=== PATIENT | female | born 1945 | race African-American/Black ===

== ENCOUNTER → 2016-07-29 | Outpatient (CLI) | payer OTHER ==
[~2016-07-29] VITALS: Ht 152.4 cm; Wt 54.2 kg
[~2016-07-29] MED LIST: AMLODIPINE BESYL5 MG PO; ASPIRIN EC81 M1 PO; B12 5,000 MCG1 EACH; B12INJ INJECTION; CYCLOBENZAPRINE10 MG PO; DESYREL50 MG PO; DETROL LA4 MG PO; FLEXERIL PO; HYDROCODON-ACE1 EAC5 PO; LIORESAL 10 MG10 MG PO; LOVASTATIN 20 M20 MG PO; LYRICA 50 MG50 MG PO; LYRICA 75 MG CA75 MG PO; MELOXICAM7.5 MG PO; MOBIC15 MG PO; NAPROSYN500 MG PO; NORCO 5-325 TA1 EACH PO; NORTRIPTYLINE H25 M3 PO; TECFIDERA240 MG PO; TRAMADOL 50 MG50 MG PO; VESICARE10 M1 PO; VITAMIN B-12500 MCG PO; VITAMIN D2000 UNIT PO; XYZAL5 MG PO; ZOCOR 20 MG TAB20 M1 PO
--- NOTE | ~2016-07-29 | HPC ---
[facility] [place] [address] PAIN MANAGEMENT CONSULTATION Name: PRISCA SOLIS Room #: REG [facility].#: [id number] Admission: 07/29/16 Attend Phys: Orlando Crews DO Discharge: Date of : 43 Report #: [id number] THIS REPORT FOR: //name// CC: Orlando Valles MD DATE OF SERVICE: 07/29/2016 REFERRING PHYSICIAN: Yakelin Valles MD. CHIEF COMPLAINT: Left neck pain, left upper extremity pain with paresthesias, low back pain, and right lower extremity pain with paresthesias. HISTORY OF PRESENT ILLNESS: As you know, the patient is a very pleasant 71-year-old female returning in followup visit with ongoing neck pain and left upper extremity pain for which she places pain score of 10/10. She also complains of low back pain and right lower extremity pain for which she provides pain level of 7/10. She states her pain is aching, sore, sharp, stabbing, constant, radiating, and tingling in sensation, exacerbated with any type of activity and improves with rest and relaxation. She indicates the pain begins in her left neck, radiates in to the left hand, typical distribution for her cervical radiculopathy. She is now experiencing, low back pain, right lower extremity pain with radiation of symptoms all the way to the top of her foot. As you are aware, the patient has undergone surgery to address left lower extremity radiculopathy. This appears to be a new onset of right lower extremity paresthesias. She returns today to discuss treatment options. ALLERGIES: SULFA, ERYTHROMYCIN, and PENICILLIN. CURRENT MEDICATIONS: Cyanocobalamin 500 mcg per day, hydrocodone/acetaminophen 10/325 for every 4 hours p.r.n. for pain, Ultram 50 mg twice a day, cholecalciferol 2000 units once a day, Tecfidera 240 mg twice a day, lovastatin 40 mg per day, aspirin 81 mg per day, amlodipine 5 mg per day. SOCIAL HISTORY: The patient denies IV or illicit drug use. Denies any chronic alcohol abuse. She remains smoker, approximately half pack a day. She is retired, unaccompanied today. IMAGING: No new imaging available. PHYSICAL EXAMINATION: VITAL SIGNS: Blood pressure 118/62, pulse 99, respiratory rate 14 unlabored. The patient is 98% on room air. Height 5 feet tall, weight 119.6 pounds, BMI calculated at 23.4. GENERAL: Well developed, well nourished, and well hydrated. [place] 71[place] [address] PAIN MANAGEMENT CONSULTATION Name: PRISCA SOLIS [id number] Admission: 07/29/16 Attend Phys: Orlando Crews DO Discharge: Date of : 43 Report #: [id number] female appears stated age. Placing current pain score at 10/10 in neck and left shoulder, 7/10 in low back and right lower extremity. HEENT: Normocephalic and atraumatic. Pupils are equal, round, and reactive to light. Extraocular muscles are intact. Sclerae are nonicteric without injection. EXTREMITIES: Showed no clubbing, no cyanosis, and no edema. MUSCULOSKELETAL: Upper extremity strength is weakened on the left, when compared to the right. Pain is elicited with biceps flexion and triceps extension, as well as shoulder abduction. Spurling's test is positive left and negative right. There is palpatory tenderness over the paraspinal musculature of the cervical spine. Seated straight leg raising is negative on the right. Supine straight leg raising is positive right. Adam's test is negative. Gait extremely antalgic favoring the right lower extremity over left. ASSESSMENT: 1. Chronic neck pain. 2. Cervical radiculopathy. 3. Cervical spondylosis with radiculopathy. 4. Lumbar radiculopathy. 5. Lumbar degeneration. 6. Multiple sclerosis. 7. Chronic intractable pain. PLAN: 1. The patient returns today in followup visit, displaying 2 different radiculopathies. The initial is the cervical radiculopathy on the left, radiating in to left upper extremity. This is unchanged from previous evaluations. She has undergone cervical epidural injections with improvement in symptoms, but unfortunately, her symptom improvement began to wane with recent injections. We have discussed again with the patient the option of treatments which include, physical therapy, stretching exercises, medication management, with addition of neuropathic pain medication. We discussed cervical epidural injections and surgical options. After reviewing risks and benefits of all proposed treatment options, the patient chose to undergo MRI to further evaluate the cervical region and initiate medications. In regard to the patient's low back pain, I am concerned of changes in the lumbar region, distribution of symptoms would indicate the L4-S1 level most likely, given the numbness and tingling radiating all the way in to the foot, making her foot "fall asleep". I am concerned that there has been changes in the lower lumbar region. That may be needed to be addressed with surgical options. We will continue to work this issue up, but we will start the patient on medications and undergo MRI of the cervical spine initially. 2. The patient was sent for an MRI of cervical spine without contrast. This will be obtained as quickly as possible. The patient then will return with MRI, and we will discuss the findings and the proposed treatment options for cervical [facility] [address] [place] [address] PAIN MANAGEMENT CONSULTATION Name: PRISCA SOLIS Room #: REG [facility] Kang.#: [id number] Admission: 07/29/16 Attend Phys: Orlando Crews DO Discharge: Date of : 43 Report #: [id number] radiculopathy involving the left upper extremity. The patient will undergo this imaging study on Wednesday. We will review the findings and discuss this at followup visit on next Wednesday. 3. The patient was provided a prescription of hydrocodone 10/325 one tab every 6 hours p.r.n. for pain. I have given the patient #120 to take as needed for pain control, and I advised to watch for side effects. 4. The patient will reinitiate the Gralise therapy 600 mg dose with titration pack to escalate all the way up to 1800 mg as needed. This will be added for the neuropathic pain control for both the cervical radiculopathy and lumbar radiculopathy. She was given a sample pack of this to initiate the medication pack at 600 mg and escalate as directed. 5. The patient was provided a prescription of cyclobenzaprine 10 mg dose 1 tab p.o. t.i.d. for muscle spasm. I have given #90 tablets. No refills. 6. The patient will start Meloxicam 7.5 mg one tab p.o. b.i.d. This will added for antiinflammatory effects. She will initiate this medication today. 7. The patient returns to our clinic in approximately 6 days. We will review the findings on the MRI and discuss treatment options for cervical radiculopathy, and discuss efficacy of medications provided today. <ELECTRONICALLY SIGNED> By: Orlando Crews DO 08/04/16 1243 [id number] Orlando Crews DO /nt
[2016-07-29 08:33] VITALS: BP 118/62
== END ==
LOC: PAIN 07:05
DX: M47.22 Other spondylosis with radiculopathy, cervical region (principal); M51.16 Intervertebral disc disorders with radiculopathy, lumbar region; G89.4 Chronic pain syndrome; G35 Multiple sclerosis

== ENCOUNTER → 2016-07-31 | Outpatient (CLI) | payer OTHER | LOC: MRI 08:20 | DX: M54.12 Radiculopathy, cervical region (principal); M54.2 Cervicalgia ==

== ENCOUNTER → 2016-08-04 | Outpatient (CLI) | payer OTHER ==
[~2016-08-04] VITALS: Ht 152.4 cm; Wt 55.2 kg
--- NOTE | ~2016-08-04 | HPC ---
[facility] [place] [address] PAIN MANAGEMENT CONSULTATION Name: PRISCA SOLIS Room #: REG [facility].#: [id number] Admission: 08/04/16 Attend Phys: Orlando Crews DO Discharge: Date of : 43 Report #: [id number] THIS REPORT FOR: //name// CC: Orlando Valles MD DATE OF SERVICE: 08/04/2016 REFERRING PHYSICIAN: Yakelin Valles M.D. CHIEF COMPLAINT: Neck pain, left upper extremity pain. HISTORY OF PRESENT ILLNESS: As you know, the patient is a 71-year-old female who has returned today in followup visit to review MRI cervical spine that was obtained on 07/31/2016 for her neck pain, left upper extremity pain. The patient returns today reporting pain has improved. She is now placing pain score 4/10. She states her pain is exacerbated with quick movements of her neck, improves with rest, relaxation and medications. She returns to review MRI of cervical spine and discuss options for treatment. ALLERGIES: SULFA, ERYTHROMYCIN and PENICILLIN. CURRENT MEDICATIONS: Cyanocobalamin, meloxicam, cyclobenzaprine, hydrocodone, pregabalin, Tecfidera, lovastatin, aspirin, and amlodipine. SOCIAL HISTORY: The patient denies IV or illicit drug use, denies any chronic alcohol use. She is a smoker, half pack of tobacco per day, unaccompanied at today's visit. IMAGING: MRI cervical spine obtained on 07/31/2016 shows persistent abnormal cord signal intensity within the cervical and upper thoracic area, most prominent at C2-C3 level, there is diffuse atrophy of the cord at the T1-T2 level. Overall appearance is not significantly changed from previous imaging. PHYSICAL EXAMINATION: VITAL SIGNS: Blood pressure 133/67, pulse is 90, respiratory rate 16, unlabored, the patient 98% on room air. Height 5 feet tall, weight 121.8 pounds, BMI calculated 23.8. GENERAL: Well-developed, well-nourished, well-hydrated 71-year-old female appearing stated age, pain today is rated at 4/10. HEENT: Normocephalic, atraumatic. Pupils are equal, round and reactive to light. Extraocular muscles are intact. Sclerae are nonicteric, without injection. Speech is fluent. EXTREMITIES: Show no clubbing, no cyanosis, no edema. MUSCULOSKELETAL: Upper extremity strength is weakened on the left when compared [facility] [address] [place] [address] PAIN MANAGEMENT CONSULTATION Name: PRISCA SOLIS [facility] [id number] Admission: 08/04/16 Attend Phys: Orlando Crews DO Discharge: Date of : 43 Report #: [id number] to the right. There is some giveaway strength noted with biceps flexion and triceps extension as well as shoulder abduction on the left as well as a negative right. Spurling's test is positive on left. ASSESSMENT: 1. Chronic neck pain. 2. Cervical radicular symptoms. 3. Cervical spondylosis with radicular symptoms. 4. Chronic lumbar radiculopathy. 5. Multiple sclerosis. 6. Chronic intractable pain. PLAN: 1. The patient has returned today in followup visit where we have reviewed her MRI of the cervical region. I have discussed with the patient the findings. I am concerned the patient may have active MS lesions in the cervical region. She does have fairly significant changes in the cervical spine with atrophy of the cord noted at the T1-T2 level. There is a mild central canal stenosis in the upper cervical region. I am concerned that the symptoms the patient was experiencing of late involving the left upper extremity may be due to her multiple sclerosis and the changes in the cervical spinal cord as well as the changes at the upper thoracic area. The patient does have an appointment with her neurologist coming up in a couple of months. They apparently are going to be doing a full scan to determine whether or not she has had changes and increasing lesions or stabilization of her MS. I have taken the liberty of contacting the patient's neurologist today, we discussed the findings on the cervical spine and the patient is to follow up with neurology more quickly. She is to call in the very near future to obtain a followup visit with her neurology team, so that they can discuss options of treatment and whether or not changes need to be made in her medication management for her MS. 2. The patient's pain has begun to improve, which would indicate the likelihood that the symptoms she was experiencing are not necessarily cervical radicular, but are her MS mimicking cervical radicular symptoms. We have made suggestion of changing the medication therapy today in hopes of improving pain. 3. The patient was given Lyrica 75 mg dose. She is to begin for 14 days at this dose, then increase to 100 mg p.o. at bedtime. We are going to be using a slow titration of this medication, so she does not experience the side effects of somnolence, decrease in mental acuity, disorientation and confusion. She was given samples of medication to begin the titration, when she reaches an efficacious level should contact the clinic and will medications available to her pharmacy. 4. The patient will follow up with neurology as quickly as possible so that they [address] [address] PAIN MANAGEMENT CONSULTATION Name: PRISCA SOLIS Room #: REG [facility].R.#: [id number] Admission: 08/04/16 Attend Phys: Orlando Crews DO Discharge: Date of : 43 Report #: [id number] can discuss options of treatment for the suspected exacerbation of MS. Further evaluation, I believe is warranted. <ELECTRONICALLY SIGNED> By: Orlando Crews DO 08/17/16 0805 [id number] 2313 Orlando Crews DO /nt
[2016-08-04 09:17] VITALS: BP 133/67
== END | disposition home or self-care (01) ==
LOC: PAIN 07:08
DX: M47.22 Other spondylosis with radiculopathy, cervical region (principal); G35 Multiple sclerosis; G89.29 Other chronic pain; F17.200 Nicotine dependence, unspecified, uncomplicated

== ENCOUNTER → 2016-10-14 | Outpatient (CLI) | payer OTHER ==
[~2016-10-14] VITALS: Ht 152.4 cm; Wt 56.7 kg
--- NOTE | ~2016-10-14 | HPC ---
[address] [address] PAIN MANAGEMENT CONSULTATION Name: PRISCA SOLIS Room #: REG CL M[facility].#: [id number] Admission: 10/14/16 Attend Phys: Orlando Crews DO Discharge: Date of : 43 Report #: [id number] THIS REPORT FOR: //name// CC: Orlando Valles DATE OF SERVICE: 10/14/2016 CHIEF COMPLAINT: Left neck pain, left upper extremity pain with paresthesias, right lower extremity pain with foot drop. HISTORY OF PRESENT ILLNESS: As you know, the patient is a very pleasant 71-year-old female who returns today in followup visit reporting increasing neck pain, left upper extremity pain with paresthesias. The patient has been diagnosed with cervical radiculopathy and has done very well with cervical epidural injections in the past. She returns requesting this to be performed today. She continues to experience right lower extremity pain that does not correlate to the patient's MRI findings, there is concern that the patient's right foot drop may be due to her MS. She is being evaluated by a neurologist and I have recommended the patient return to see the neurologist about the increasing pain levels in the right lower extremity, again not correlating to MRI findings, which show only left-sided pathology from imaging studies of 2016. The patient is denying any injury or trauma to the lower back, right lower extremity that would lead to symptoms development from acute pathology. She has returned requesting a cervical epidural injection to determine how much of her symptoms in the upper neck and left side are related to cervical radiculopathy versus the possibility of MS sources given the changes in the cervical spine from MRI showing fairly stable plaques, but changes all the same. ALLERGIES: SULFA, ERYTHROMYCIN, PENICILLIN. CURRENT MEDICATIONS: Lyrica, nortriptyline, hydrocodone, Meloxicam, cyclobenzaprine, cyanocobalamin, Tecfidera, lovastatin, aspirin, and amlodipine. SOCIAL HISTORY: The patient denies IV or illicit drug use. Denies any chronic alcohol use. She continues to smoke 1 pack of tobacco a day. She is unaccompanied today. IMAGING: No new imaging available. PHYSICAL EXAMINATION: VITAL SIGNS: Blood pressure 127/71, pulse 90, respiratory rate 14 and unlabored. The patient 98% on room air. Height 5 feet tall, weight 125 pounds, BMI calculated 24.4. GENERAL: Well-developed, well-nourished, well-hydrated, thin 71-year-old female, appears in moderate distress secondary to pain, [place] [address] PAIN MANAGEMENT CONSULTATION Name: PRISCA SOLIS [facility] [id number] Admission: 10/14/16 Attend Phys: Orlando Crews DO Discharge: Date of : 43 Report #: [id number] score at around 7-8/10. HEENT: Normocephalic, atraumatic. Pupils equal, round, reactive to light. Extraocular muscles are intact. Speech is fluent. EXTREMITIES: Show no clubbing, no cyanosis, no edema. MUSCULOSKELETAL: Upper extremity strength is weakened on the left when compared to the right. Giveaway strength noted with biceps flexion as well as shoulder abduction. Spurling's test is positive for left, negative right. There is normal muscle bulk and tone in the upper extremities comparatively. The patient does have some weakness in the right lower extremity noted mainly with dorsiflexion of the right foot as well as knee extension. ASSESSMENT: 1. Chronic neck pain. 2. Cervical radiculopathy. 3. Cervical spondylosis with radiculopathy. 4. Chronic low back pain. 5. Multiple sclerosis. 6. Chronic intractable pain. PLAN: 1. The patient returns today in followup visit with what appears to be recurrent cervical radicular symptoms. The symptoms the patient is experiencing are on the left neck radiating down the left arm. Does not appear to be a shoulder pathology as the patient is able to move the shoulder with no change in pain and is able to hold the shoulder stable without change in pain, which would indicate a nonjoint related type of pain generator. The symptoms began in the cervical spine, radiate across the back of the shoulder into the arm and down below the elbow. This would correlate with cervical radicular symptoms, though I cannot fully rule out the multiple sclerosis underlying issues noted in the cord as these could also be a source of her symptoms. We would recommend the patient undergo cervical epidural injection to determine how much of her symptoms are related to cervical radiculopathy versus how much might be related to other pathology. The patient was advised the risks and benefits of a cervical epidural injection, states she understood and wished to proceed. 2. The patient and I did discuss our concerns about the right lower extremity weakness. Her weakness does not correlate to a lumbar radiculopathy. Findings on MRI from 01/07/2016, shows no right-sided pathology, there is no lateralization of condition on the right, only left-sided. The patient is experiencing no left-sided discomfort at this point. The weakness on the right side could be related to her multiple sclerosis and I do feel workup may be necessary as there might be a possibility. The patient needs to change her medication therapy for her underlying disease processes. We will defer to neurology for examination of this area, though I do feel once again this is not a lumbar radicular issue as the patient's MRI shows no lateralizing feature to the right. 3. No medication changes were made at today's visit. The patient to continue [facility] [address] [place] [address] PAIN MANAGEMENT CONSULTATION Name: PRISCA SOLIS Room #: REG [facility]..#: [id number] Admission: 10/14/16 Attend Phys: Orlando Crews DO Discharge: Date of : 43 Report #: [id number] current medical therapy as previously prescribed. PROCEDURE NOTE DESCRIPTION OF PROCEDURE: C7-T1 cervical epidural steroid injection under fluoroscopic guidance. After obtaining written consent, the patient was taken back to fluoroscopy suite, placed in a prone position with separate pillows under chest and forehead to decrease cervical lordosis. Skin overlying cervical area are prepped and draped in aseptic fashion. C7-T1 cervical interspace identified by AP fluoroscopy. Skin and subcutaneous tissue overlying the target site of injection was anesthetized with 3 mL of 1% lidocaine. A 20-gauge 3-1/2 inch Tuohy needle advanced under fluoroscopic guidance towards the epidural space using a paramedian approach. Epidural space identified using loss of resistance to air technique. After negative aspiration for heme or cerebrospinal fluid, 1 mL of Omnipaque was injected. A cervical epidurogram confirmed using both AP and oblique fluoroscopy. After negative aspiration for heme or cerebrospinal fluid, 5 mL of a solution containing 2 mL 40 mg per mL, 80 mg total triamcinolone, 3 mL lidocaine 1% was injected slowly. Needle retracted fci, needle tract flushed 3 mL 1% lidocaine. Needle then removed. Sterile bandage placed over injection site. No new motor deficits present in the upper extremity following the procedure. The patient tolerated procedure well, carefully escorted to the recovery in stable condition. No apparent complications. After meeting discharge criteria, the patient discharged home. By: [id number] Orlando Crews DO /nt
[2016-10-14 08:22] VITALS: BP 127/71
== END ==
LOC: PAIN 08:05
DX: M47.22 Other spondylosis with radiculopathy, cervical region (principal); G89.29 Other chronic pain; F17.210 Nicotine dependence, cigarettes, uncomplicated; I10 Essential (primary) hypertension

== ENCOUNTER → 2016-11-03 | Outpatient (CLI) | payer OTHER ==
[~2016-11-03] VITALS: Ht 152.4 cm; Wt 56.5 kg
[~2016-11-03] MED LIST changes: +ALEVE220 MG PO
--- NOTE | ~2016-11-03 | HPC ---
[facility] [place] [address] PAIN MANAGEMENT CONSULTATION Name: PRISCA SOLIS Room #: REG [facility] MJim.#: [id number] Admission: 11/03/16 Attend Phys: Orlando Crews DO Discharge: Date of : 43 Report #: [id number] THIS REPORT FOR: //name// CC: Orlando Valles MD DATE OF SERVICE: 11/03/2016 CHIEF COMPLAINT: Left neck pain, left upper extremity pain and paresthesias, right lower extremity pain and foot drop. HISTORY OF PRESENT ILLNESS: As you know, the patient is a 71-year-old female who suffers from multiple sclerosis with variable pain levels, most recent pain was in the left neck, left upper extremity, though we found no specific pathology in the cervical spine responsible. She underwent a couple of epidural injections, which did ultimately improve symptoms, though her symptom improvement did not correlate with the timing on the injections themselves. Not confident during our conversation today that the epidurals did provide as much analgesic benefit as the patient believes. The timing for the improvement was well beyond the injection date. We discussed with the patient the possibility that her experience of pain may be related to other sources including the possibility of exacerbation of MS symptoms despite the fact the patient is showing no changes in her MS plaques. She returns today with pain level 6/10, but now is experiencing more left-sided weakness in general. ALLERGIES: SULFA, ERYTHROMYCIN, AND PENICILLIN. CURRENT MEDICATIONS: Lyrica, nortriptyline, hydrocodone, Meloxicam, cyclobenzaprine, , Tecfidera, lovastatin, aspirin, and amlodipine. SOCIAL HISTORY: The patient smokes one-pack tobacco per day despite our discussions to discontinue its use. Denies IV or illicit drug use. Denies any chronic alcohol use. She is unaccompanied today. IMAGING: New imaging available to be reviewed today. Thoracic MRI shows hyperintensities within the thoracic cord similar to 2015 study, provide a history of demyelination. MRI of the lumbar spine shows mild degenerative disk disease, facet arthropathy throughout the lumbar region. Partial laminectomy defect at left L4-L5, enhancing granulation tissue both dorsal and ventral. MRI of brain shows intensities within the supratentorial white matter in the patsy similar to prior study. The findings are compatible with demyelination, brain parenchymal volume loss. MRI of the cervical spine shows multiple cord hyperintensity similar to 2015. No active demyelinating plaque identified. Mild degenerative changes, but no lateralizing features in the cervical region. [facility] [address] [place] [address] PAIN MANAGEMENT CONSULTATION Name: PRISCA SOLIS Room #: REG CLI [facility]#: [id number] Admission: 11/03/16 Attend Phys: Orlando Crews DO Discharge: Date of : 43 Report #: [id number] PHYSICAL EXAMINATION: VITAL SIGNS: Blood pressure 139/61, pulse 85 and respiratory rate 14, unlabored. The patient is 100% on room air. Height 5 feet tall and weight 124.6 pounds. BMI calculated 24.3. GENERAL: Well-developed, well-nourished, well-hydrated, thin, 71-year-old female, appearing stated age, placing pain score today, no greater than 6/10. HEENT: Normocephalic, atraumatic. Pupils are equal, round, and reactive to light. Extraocular muscles are intact. EXTREMITIES: Showed no clubbing, no cyanosis, no edema. MUSCULOSKELETAL: Upper extremity strength on the left is weakened when compared to right. This is global in nature. Giveaway strength noted with biceps flexion as well as shoulder abduction. Spurling's test remains positive left, negative right. ASSESSMENT: 1. Chronic cervical radicular symptoms without a known source. 2. Cervical spondylosis with radicular symptoms, mild in nature. 3. Multiple sclerosis. 4. Chronic intractable pain. PLAN: 1. The patient returns today in followup visit where we have reviewed all the recent imaging studies, we appreciate the full extent of the imaging work that was done. I am pleased to indicate to the patient today, it does not appear to be increasing plaque development due to MS. Interestingly, I am unable to find a reason for the patient's left neck pain and left upper extremity pain. There is no lateralizing feature that would be indicative of findings necessary to develop a cervical radiculopathy. I am concerned that her multiple sclerosis symptomology may be the source of the patient's neck and the left upper extremity symptoms. Again, I am unable to find any specific finding in the cervical region that would contribute so significantly to the patient's symptoms. The disk osteophyte complexes and mild ligamentum flavum buckling only narrows the canal to 9 mm, which is not significant enough to cause the major affect, she is experiencing. She does have some moderate facet changes in the cervical region and leads to some moderate foraminal stenosis, but again this is not significant enough to cause the kind of pain the patient is experiencing. The fact that the patient also received benefit with epidural injections well beyond after the epidural injections faded. We would indicate that other sources of symptoms may be present. We would recommend at this time that we use conservative treatment. At this point, the patient does not need anything from our services except to review the imaging studies. I will be more than available to see the patient back in followup visit for medication management if she wishes to trial cervical injections. There are some changes within the cervical region that would warrant this though I am not confident that her injections are providing that much in the way of improvement in symptoms. We will discuss this at followup visit. [address] [address] PAIN MANAGEMENT CONSULTATION Name: PRISCA SOLIS Room #: REG [facility]#: [id number] Admission: 11/03/16 Attend Phys: Orlando Crews DO Discharge: Date of : 43 Report #: [id number] 2. I have asked the patient to follow up with her neurologist just to continue contact through their services. I do wish that the patient and her neurologist discuss our concerns about the lack of major pathology in the cervical spine, possibly an EMG would be helpful in this case to address the specific findings of electrode myelographic data that might help us treat her symptoms, though I have currently on neuropathic pain medications and I do not feel this would change much the treatment options. 3. We will see the patient back in followup visit on an as needed basis. By: [id number] Orlando Crews DO /nt
[2016-11-03 08:32] VITALS: BP 139/61
== END ==
LOC: PAIN 10-28 09:23
DX: M47.812 Spondylosis without myelopathy or radiculopathy, cervical region (principal); F17.210 Nicotine dependence, cigarettes, uncomplicated; I10 Essential (primary) hypertension

== ENCOUNTER → 2016-12-22 | Outpatient (CLI) | payer OTHER ==
[~2016-12-22] VITALS: Ht 152.4 cm; Wt 57.8 kg
--- NOTE | ~2016-12-22 | HPC ---
[facility] [address] [place] [address] PAIN MANAGEMENT CONSULTATION Name: PRISCA SOLIS Room #: REG [facility].#: [id number] Admission: 12/22/16 Attend Phys: Orlando Crews DO Discharge: Date of : 43 Report #: [id number] THIS REPORT FOR: //name// CC: Orlando Valles MD DATE OF SERVICE: 12/22/2016 CHIEF COMPLAINT: Left neck pain, left upper extremity pain with paresthesias. HISTORY OF PRESENT ILLNESS: As you know, the patient is a 71-year-old female who suffers from multiple sclerosis with variable pain levels, most recent pain left neck and left upper extremity, which has returned. She had done very well with epidural injections in the cervical region, reporting 60% to 70% improvement in overall pain lasting until just recently. She has had a slow return of symptoms without inciting injury or trauma. She returns to undergo the next in a series of cervical epidural injections in hopes of improving pain further. ALLERGIES: SULFA, ERYTHROMYCIN and PENICILLIN. CURRENT MEDICATIONS: Meloxicam, naproxen, pregabalin, nortriptyline, hydrocodone, cyclobenzaprine, cyanocobalamin, Tecfidera, lovastatin, aspirin, and amlodipine. SOCIAL HISTORY: The patient continues to smoke 1 pack tobacco per day, has done so for many years. Denies IV or illicit drug use. Denies any chronic alcohol use. IMAGING: No new imaging available. PHYSICAL EXAMINATION: VITAL SIGNS: Blood pressure 120/76, pulse 68, respiratory rate 14, unlabored. The patient 99% on room air. Height 5 feet tall, weight 127.4 pounds, BMI calculated 24.9. GENERAL: Well-nourished, well-hydrated, thin 71-year-old female appearing stated age, placing current pain score 8/10. HEENT: Normocephalic, atraumatic. Pupils equal, round, reactive to light. Speech remains fluent. EXTREMITIES: Show no clubbing, no cyanosis, no edema. MUSCULOSKELETAL: Upper extremity strength is weakened on the left when compared to the right. This appears to be global in nature, not dermatomal or myotomal in distribution. Giveaway strength is noted with biceps flexion on the left when compared to the right. Spurling's test positive left, negative right. [address] [address] PAIN MANAGEMENT CONSULTATION Name: PRISCA SOLIS Room #: REG [facility]#: [id number] Admission: 12/22/16 Attend Phys: Orlando Crews DO Discharge: Date of : 43 Report #: [id number] ASSESSMENT: 1. Chronic cervical radiculopathy. 2. Cervical spondylosis with radicular symptoms. 3. Multiple sclerosis. 4. Chronic intractable pain. PLAN: 1. The patient returns today in followup visit requesting to undergo cervical epidural injection under fluoroscopic guidance. The patient has done very well with previous cervical epidural injections. She is hopeful to see similar improvements today. She has been advised risks and benefits of this procedure. These risks include but are not necessarily limited to bleeding, bruising, infection, worsening pain, no relief of pain, also risk of temporary or permanent muscle weakness, temporary or permanent nerve damage, possible paralysis and . The patient states she understood and wished to proceed. 2. No medication changes were made at today's visit. The patient will continue current medical therapy as previously prescribed. 3. The patient will return to our clinic on an as needed basis for possible repeat cervical epidural injection. Otherwise, we will see her back in followup visit for medication management at her pre-established appointment. By: [id number] Orlando Crews DO /nt
--- NOTE | ~2016-12-22 | P ---
[facility] [place] [address] PROCEDURE REPORT Name: PRISCA SOLIS Room #: REG [facility].#: [id number] Admission: 12/22/16 Attend Phys: Orlando Crews DO Discharge: Date of : 43 Report #: [id number] THIS REPORT FOR: //name// CC: Orlando Valles MD DATE OF SERVICE: 12/22/2016 DESCRIPTION OF PROCEDURE: C7-T1 cervical epidural steroid injection under fluoroscopic guidance. After obtaining written consent, the patient was taken back to fluoroscopy suite, placed in prone position with separate pillows under chest and forehead to decrease cervical lordosis. Skin overlying cervical area prepped and draped in aseptic fashion. C7-T1 cervical interspace identified by AP fluoroscopy. Skin and subcutaneous tissue overlying target site of injection was anesthetized with 3 mL of 1% lidocaine. A 20-gauge 3-1/2-inch Tuohy needle advanced under fluoroscopic guidance towards the epidural space using midline approach. Epidural space identified using loss of resistance to air technique. After negative aspiration for heme or cerebrospinal fluid, 1 mL of Omnipaque was injected. A cervical epidurogram was confirmed using both AP and oblique fluoroscopy. After negative aspiration for heme or cerebrospinal fluid, 5 mL of a solution containing 2 mL 40 mg per mL, 80 mg total triamcinolone, 3 mL lidocaine 1% injected slowly. Needle retracted fci, needle tract flushed 3 mL 1% lidocaine. Needle then removed. Sterile bandage placed over injection site. No new motor deficits present in the upper extremity following the procedure. The patient tolerated procedure well, carefully escorted to the recovery room in stable condition. No apparent complications. After meeting discharge criteria, the patient discharged home. By: [id number] Orlando Crews DO /nt
[2016-12-22 08:19] VITALS: BP 120/76
== END | disposition home or self-care (01) ==
LOC: PAIN 06:49
DX: M47.22 Other spondylosis with radiculopathy, cervical region (principal); G35 Multiple sclerosis; G89.29 Other chronic pain; F17.210 Nicotine dependence, cigarettes, uncomplicated; Z88.8 Allergy status to other drugs, medicaments and biological substances; Z88.0 Allergy status to penicillin

== ENCOUNTER → 2017-03-17 | Outpatient (CLI) | payer OTHER ==
[~2017-03-17] VITALS: Ht 152.4 cm; Wt 60.3 kg
--- NOTE | ~2017-03-17 | HPC ---
[facility] [address] [place] [address] PAIN MANAGEMENT CONSULTATION Name: PRISCA SOLIS [facility] [id number] Admission: 03/17/17 Attend Phys: Orlando Crews DO Discharge: Date of : 43 Report #: [id number] THIS REPORT FOR: //name// CC: Orlando Logan MD DATE OF SERVICE: 03/17/2017 REFERRING PHYSICIAN: Adria Logan MD CHIEF COMPLAINT: Neck pain, left upper extremity pain with paresthesias, new onset right shoulder pain. HISTORY OF PRESENT ILLNESS: As you know, the patient is a very pleasant 72-year-old female who suffers from cervical radicular symptoms that mainly involved the neck and left upper extremity. She returns today with a pain level of 5/10. She is now indicating pain is aching, numbness, tender when describing the left upper extremity issues. She is also experiencing right shoulder pain that is "similar to her previous pain secondary to rotator cuff injury." The patient returns to discuss options for treatment. She denies new injury or trauma that may have led to progression of symptoms. She did receive 2 months' worth of improvement in symptoms with previous epidural injection, returning requesting a cervical epidural injection and to discuss the right shoulder pain that is new in presentation. ALLERGIES: SULFA, ERYTHROMYCIN, and PENICILLIN. CURRENT MEDICATIONS: Naproxen, pregabalin, nortriptyline, cyclobenzaprine, cyanocobalamin, cholecalciferol, Tecfidera, losartan, aspirin, and amlodipine. SOCIAL HISTORY: The patient continues to smoke 1 pack of tobacco per day, has done so for years. Denies IV or illicit drug use. Denies any chronic alcohol use. She is unaccompanied today. IMAGING: No new imaging available. PHYSICAL EXAMINATION: VITAL SIGNS: Blood pressure 131/65, pulse 85, respiratory rate 14 and unlabored, the patient is 98% on room air, height 5 feet tall, weight 133 pounds, and BMI calculated 26.0. GENERAL: Well-developed, well-nourished, well-hydrated 72-year-old female, she appears her stated age, she is in moderate distress secondary to pain, placing current pain score at 5/10. HEENT: Normocephalic, atraumatic. Pupils are equal, round, and reactive to light. Extraocular muscles are intact. Sclerae nonicteric without injection. [facility] [address] [place] [address] PAIN MANAGEMENT CONSULTATION Name: PRISCA SOLIS Room #: REG CLI [facility]#: [id number] Admission: 03/17/17 Attend Phys: Orlando Crews DO Discharge: Date of : 43 Report #: [id number] Speech fluent. EXTREMITIES: Show no clubbing, no cyanosis, and no edema. MUSCULOSKELETAL: Upper extremity strength is weakened on the left when compared to the right. Cervical provocation with extension, rotation, and lateral flexion of the left causes intensification of pain. Spurling's test positive left, negative right. There is active and passive range of motion and pain on the right shoulder. No radiation of symptoms. ASSESSMENT: 1. Cervical radiculopathy. 2. Cervical spondylosis with radiculopathy. 3. Multiple sclerosis. 4. Right shoulder pain. 5. Chronic intractable pain. PLAN: 1. The patient returns today in followup visit with recurrent cervical radicular symptoms involving left upper extremity. She indicates pain that radiates from the neck now into the left upper extremity and left flank to about the T4 dermatomal distribution. She is also experiencing new increasing right shoulder pain, though I cannot correlate this directly to cervical radicular symptoms, though there is a strong possibility this could be due to cervical radiculopathy. The patient and I did discuss treatment options for the cervical radicular symptoms, she did receive 2 months' worth of excellent improvement with cervical epidural injection, I would recommend the patient to undergo the cervical epidural today. I will consider further evaluation of the right shoulder if her symptoms do not improve with the cervical injection. Certainly from the left upper extremity standpoint, this is a continuation of her cervical radiculopathy. 2. The patient was consented to undergo a cervical epidural injection, these risks of procedure include, but are not necessarily limited to bleeding, bruising, infection, worsening of pain, no relief of pain, also risk of temporary or permanent muscle weakness, temporary or permanent nerve damage, possible paralysis, post-dural puncture headache and , the patient states understood and wished to proceed. 3. No medication changes were made at today's visit. The patient has medication available and does not need refills on the therapy. She does feel the medications are working beneficially and does wish to continue the therapy. I did advise the patient if refills are necessary, she should contact her pharmacy and they will contact us and we will refill those medications without a followup appointment. 4. The patient was advised if her right shoulder does not improve with this injection over the next 2 weeks to contact our clinic, further evaluation be necessary, we will begin with x-ray imaging and then have the patient follow up with orthopedics. [address] [address] PAIN MANAGEMENT CONSULTATION Name: PRISCA SOLIS Room #: REG CLI [facility]#: [id number] Admission: 03/17/17 Attend Phys: Orlando Crews DO Discharge: Date of : 43 Report #: [id number] PROCEDURE NOTE DESCRIPTION OF PROCEDURE: C7-T1 cervical epidural steroid injection under fluoroscopic guidance. After obtaining written consent, the patient was taken back to fluoroscopy suite, placed in prone position with separate pillows under chest and forehead to decrease cervical lordosis. Skin overlying cervical area prepped and draped in aseptic fashion. C7-T1 cervical interspace was identified by AP fluoroscopy. Skin and subcutaneous tissue overlying the target site of injection was anesthetized with 3 mL of 1% lidocaine. A 20-gauge 3-1/2-inch Tuohy needle was advanced under fluoroscopic guidance towards the epidural space using a midline approach. Epidural space identified using loss of resistance to air technique. After negative aspiration for heme or cerebrospinal fluid, 1 mL of Omnipaque was injected. A cervical epidurogram was confirmed using both AP and lateral fluoroscopy. After negative aspiration for heme or cerebrospinal fluid, 5 mL of a solution containing 2 mL 40 mg per mL, 80 mg total triamcinolone, 3 mL lidocaine 1% injected slowly. Needle retracted nursing home, needle tract flushed 3 mL 1% lidocaine. Needle then removed. Sterile bandage placed over injection site. No new motor deficits present in the upper extremity following the procedure. The patient tolerated the procedure well, carefully escorted to the recovery room in stable condition. No apparent complication. After meeting discharge criteria, the patient discharged home. By: [id number] Orlando Crews DO /reese
[2017-03-17 08:01] VITALS: BP 131/65
== END ==
LOC: PAIN 07:18
DX: M47.22 Other spondylosis with radiculopathy, cervical region (principal); G35 Multiple sclerosis; M25.511 Pain in right shoulder; G89.29 Other chronic pain; F17.210 Nicotine dependence, cigarettes, uncomplicated; Z88.0 Allergy status to penicillin; Z88.2 Allergy status to sulfonamides; Z79.899 Other long term (current) drug therapy; Z79.82 Long term (current) use of aspirin

== ENCOUNTER → 2017-07-20 | Outpatient (CLI) | payer OTHER ==
[~2017-07-20] VITALS: Ht 152.4 cm; Wt 56.2 kg
[~2017-07-20] MED LIST changes: +ATORVASTATIN CA40 MG PO; +CYMBALTA30 MG PO; +LIPITOR 20 MG T20 M1 PO; -LOVASTATIN 20 M20 MG PO; +MYRBETRIQ50 MG PO
--- NOTE | ~2017-07-20 | P ---
[facility] [place] [address] PROCEDURE REPORT Name: PRISCA SOLIS [facility] [id number] Admission: 07/20/17 Attend Phys: Orlando Crews DO Discharge: Date of : 43 Report #: [id number] THIS REPORT FOR: //name// CC: Orlando Logan MD DATE OF SERVICE: 07/20/2017 DESCRIPTION OF PROCEDURE: Right intra-articular shoulder injection. After obtaining written consent, the patient was taken back to fluoroscopy suite, placed in a supine position. Image intensifier was then placed in position over the right shoulder and imaging was obtained. A sterile marker was then placed over the injection site. The shoulder was prepped with chlorhexidine and anesthetized with 2 mL of 1% lidocaine. A 25-gauge 2-inch needle was advanced under fluoroscopic guidance into the right shoulder. After entry into the shoulder, an AP and lateral imaging was obtained to confirm position of the needle. After negative aspiration for heme, 0.6 mL of Omnipaque was injected demonstrating an excellent right shoulder arthrogram. After negative aspiration for heme, 3 mL of a solution containing 1 mL 40 mg per mL, 40 mg total triamcinolone, 2 mL of bupivacaine 0.5% was injected slowly. Needle retracted assisted, flushed with 1 mL bupivacaine 0.5% and removed. Sterile bandage placed over injection site. The patient tolerated procedure well, carefully escorted to recovery room in stable condition. No apparent complication. After meeting discharge criteria, the patient discharged home. <ELECTRONICALLY SIGNED> By: Orlando Crews DO 08/03/17 [id number] Orlando Crews DO /nt
--- NOTE | ~2017-07-20 | HPC ---
[facility] [address] [place] [address] PAIN MANAGEMENT CONSULTATION Name: PRISCA SOLIS [facility] #: [facility] [id number] Admission: 07/20/17 Attend Phys: Orlando Crews DO Discharge: Date of : 43 Report #: [id number] THIS REPORT FOR: //name// CC: Orlando Logan MD DATE OF SERVICE: 07/20/2017 CHIEF COMPLAINT: Neck pain, left upper extremity pain with paresthesias, right shoulder pain status post 2 falls and right wrist pain. HISTORY OF PRESENT ILLNESS: As you know, the patient is a very pleasant 72-year-old female returning in followup visit with continued cervical radicular symptoms involving left neck and left upper extremity. She is also complaining of 2 different injuries to the right shoulder that has led to increasing right shoulder pain and right wrist pain after the second fall. She wishes to discuss options for treatment each of these conditions. She is placing pain score today at 10/10. ALLERGIES: SULFA, ERYTHROMYCIN AND PENICILLIN. CURRENT MEDICATIONS: Naproxen, pregabalin, nortriptyline, cyclobenzaprine, cyanocobalamin, cholecalciferol, Tecfidera, losartan, aspirin, and amlodipine. SOCIAL HISTORY: The patient continues to smoke 1 pack of tobacco per day and has done so for years. Denies IV or illicit drug use. Denies any chronic alcohol use. Unaccompanied today. IMAGING: No new imaging available. PHYSICAL EXAMINATION: VITAL SIGNS: Blood pressure 119/61, pulse 72, respiratory rate 16, unlabored, the patient is 97% on room air. Height 5 feet tall, weight 124 pounds, BMI calculated 24.2. GENERAL: Well-developed, well-nourished, well-hydrated 72-year-old female appearing stated age, pain is rated at 10/10. HEENT: Normocephalic, atraumatic. Pupils equal, round, reactive to light. Extraocular muscles are intact. Sclerae nonicteric without injection. NEUROLOGIC: Cranial nerves 2 through 12 grossly intact. EXTREMITIES: Show no clubbing, no cyanosis, no edema. MUSCULOSKELETAL: There is noted tenderness over the distal portion of the radius. There is ecchymosis overlying the radial area, also radiating into the proximal portion of the thumb. The wrist is tender to palpation. Rotation intensifies the patient's symptoms. Cervical provocation testing is also noted [address] [address] PAIN MANAGEMENT CONSULTATION Name: PRISCA SOLIS Room #: REG [facility] Wilber#: [id number] Admission: 07/20/17 Attend Phys: Orlando Crews DO Discharge: Date of : 44 Report #: [id number] to exacerbate symptoms on the left. Spurling's test positive left, negative right. Active and passive range of motion right shoulder intensifies right shoulder pain. ASSESSMENT: 1. Right shoulder injury status post falls x 2. 2. Cervical radiculopathy. 3. Cervical spondylosis with radiculopathy. 4. Multiple sclerosis. 5. Right wrist pain status post fall. 6. Chronic intractable pain. PLAN: 1. The patient returns today in followup visit indicating 2 different falls for which she denies any dysphoric effects or changes in mentation. States the initial fall was on an escalator, second fall was while doing housecleaning after [place]. Both falls landed on the right shoulder exacerbating right shoulder pain. One fall actually led to the wrist pain where she fell on an outstretched hand. We recommend the following for the patient treatment. 2. The patient will be sent for x-ray imaging of the right wrist and thumb. She will undergo this x-ray imaging immediately. We will review the findings and determine if her fracture exists. If there is a fracture, bracing or surgical consultations might be necessary. The patient will undergo the x-ray imaging, we will review the findings and the patient can call for the results. 3. The patient has been consented and we will perform a right intraarticular shoulder injection. Shoulder injection will be performed today. She was advised risks and benefits, states she understood and wished to proceed. 4. The patient will return to our clinic next week for a possible cervical epidural injection. This should address the patient's typical cervical radicular symptoms involving neck and left upper extremity. We will have her return in 1 week to provide that injection. 5. No medication changes were made at today's visit. The patient to continue current medical therapy as previously prescribed. 6. We will see the patient back in followup visit next week for cervical epidural injection. <ELECTRONICALLY SIGNED> By: Orlando Crews DO 08/03/17 0906 [id number] Orlando Crews DO /nt
[2017-07-20 08:27] VITALS: BP 119/61
== END | disposition home or self-care (01) ==
LOC: PAIN 07-13 07:02
DX: M25.511 Pain in right shoulder (principal); S49.91XA Unspecified injury of right shoulder and upper arm, initial encounter; M25.531 Pain in right wrist; G35 Multiple sclerosis; G89.29 Other chronic pain; M47.22 Other spondylosis with radiculopathy, cervical region; F17.210 Nicotine dependence, cigarettes, uncomplicated; Z88.0 Allergy status to penicillin; Z88.2 Allergy status to sulfonamides; Z79.899 Other long term (current) drug therapy; Z79.82 Long term (current) use of aspirin; W19.XXXA Unspecified fall, initial encounter; Y93.89 Activity, other specified; Y92.89 Other specified places as the place of occurrence of the external cause; Y99.8 Other external cause status

== ENCOUNTER → 2017-07-27 | Outpatient (CLI) | payer OTHER ==
[~2017-07-27] VITALS: Ht 152.4 cm; Wt 58.1 kg
--- NOTE | ~2017-07-27 | HPC ---
[facility] [place] [address] PAIN MANAGEMENT CONSULTATION Name: PRISCA SOLIS [facility] [id number] Admission: 07/27/17 Attend Phys: Orlando Crews DO Discharge: Date of : 43 Report #: [id number] THIS REPORT FOR: //name// CC: Orlando Logan MD DATE OF SERVICE: 07/27/2017 CHIEF COMPLAINT: Neck pain, left upper extremity pain and paresthesias. HISTORY OF PRESENT ILLNESS: As you know, the patient is a very pleasant 72-year-old female who returns today in followup visit to undergo cervical epidural injection under fluoroscopic guidance. She has completed her antibiotic therapy and returns to undergo the cervical epidural injection that she requested last visit. She reports that she is in good health at this time except for her cervical radicular symptoms that are causing increased pain in the left upper extremity. She returns today without inciting injury or trauma requesting to undergo a cervical epidural injection. ALLERGIES: SULFA, ERYTHROMYCIN AND PENICILLIN. CURRENT MEDICATIONS: Naproxen, pregabalin, nortriptyline, cyclobenzaprine, cyanocobalamin, cholecalciferol, Tecfidera, losartan, aspirin and amlodipine. SOCIAL HISTORY: The patient continues to smoke 1 pack tobacco per day. She has done so for years. Denies IV or illicit drug use. Denies any chronic alcohol use. She is unaccompanied today. IMAGING: No new imaging available. PHYSICAL EXAMINATION: VITAL SIGNS: Blood pressure 123/68, pulse 82, respiratory rate 20, unlabored. The patient is 98% on room air. Height 5 feet tall, weight 128 pounds, BMI calculated 25.0. GENERAL: Well-developed, well-nourished, well-hydrated, thin 72-year-old female, appears her stated age. She is in mild distress secondary to pain, placing current pain score 5-6/10. HEENT: Normocephalic, atraumatic. Pupils are equal, round, reactive to light. Extraocular muscles are intact. Speech remains fluent. EXTREMITIES: Show no clubbing, no cyanosis, no edema. MUSCULOSKELETAL: Upper extremity strength is weakened on the left when compared to the right. This appears to be giveaway strength secondary to pain. Muscle bulk and tone is symmetrical when comparing left upper extremity to right. Spurling's test positive left, negative right. Gait is antalgic. She does have [facility] [address] [address] PAIN MANAGEMENT CONSULTATION Name: PRISCA SOLIS Room #: REG [facility]#: [id number] Admission: 07/27/17 Attend Phys: Orlando Crews DO Discharge: Date of : 43 Report #: [id number] a forward flexed stance. ASSESSMENT: 1. Cervical radiculopathy. 2. Cervical spondylosis with radicular symptoms. 3. Multiple sclerosis. 4. Chronic shoulder pain. 5. Chronic intractable pain. PLAN: 1. The patient returns today in followup visit requesting the next in a series of cervical epidural injections. The patient has done very well with previous cervical injections and hopeful to see similar improvement today. She was advised risks and benefits of the procedure, states understood and wished to proceed. The patient states she has had no recent falls that may have exacerbated symptoms. She has had no changes in her medical history last week. She returns today in followup visit for cervical epidural injection. PROCEDURE NOTE DESCRIPTION OF PROCEDURE: C7-T1 cervical epidural steroid injection under fluoroscopic guidance. After obtaining written consent, the patient was taken back to fluoroscopy suite, placed in prone position with separate pillows under chest and forehead to decrease cervical lordosis. Skin overlying cervical area then prepped and draped in aseptic fashion. C7-T1 interspace identified by AP fluoroscopy. Skin and subcutaneous tissue overlying target site of injection was anesthetized with 3 mL of 1% lidocaine. A 20-gauge 3-1/2 inch Tuohy needle was advanced under fluoroscopic guidance towards the epidural space using a midline approach. Epidural space identified using loss of resistance to air technique. After negative aspiration for heme or cerebrospinal fluid, 1 mL of Omnipaque was injected. A cervical epidurogram was confirmed using both AP and oblique fluoroscopy. After negative aspiration for heme or cerebrospinal fluid, 5 mL of a solution containing 2 mL 40 mg per mL, 80 mg total triamcinolone, 3 mL lidocaine 1% injected slowly. Needle retracted fci, flushed with 1 mL of 1% lidocaine and removed. Sterile bandage placed over injection site. No new motor deficits present in the upper extremity following procedure. The patient tolerated procedure well, carefully escorted to recovery room in [address] [address] PAIN MANAGEMENT CONSULTATION Name: PRISCA SOLIS Room #: REG [facility] Merino#: [id number] Admission: 07/27/17 Attend Phys: Orlando Crews DO Discharge: Date of : 43 Report #: [id number] stable condition. No apparent complications. After meeting discharge criteria, the patient discharged home. <ELECTRONICALLY SIGNED> By: Orlando Crews DO 08/03/17 0908 [id number] [id number] Orlando Crews DO /nt
[2017-07-27 08:19] VITALS: BP 123/68
== END | disposition home or self-care (01) ==
LOC: PAIN 07:11
DX: M47.22 Other spondylosis with radiculopathy, cervical region (principal); G89.29 Other chronic pain; M25.512 Pain in left shoulder; Z88.0 Allergy status to penicillin; Z88.2 Allergy status to sulfonamides; Z88.8 Allergy status to other drugs, medicaments and biological substances; Z79.82 Long term (current) use of aspirin; Z79.899 Other long term (current) drug therapy; Z98.890 Other specified postprocedural states

== ENCOUNTER → 2017-09-14 | Outpatient (CLI) | payer OTHER ==
[~2017-09-14] VITALS: Ht 152.4 cm; Wt 56.4 kg
--- NOTE | ~2017-09-14 | HPC ---
[facility] [place] [address] PAIN MANAGEMENT CONSULTATION Name: PRISCA SOLIS Room #: REG [facility].#: [id number] Admission: 09/14/17 Attend Phys: Orlando Crews DO Discharge: Date of : 44 Report #: [id number] THIS REPORT FOR: //name// CC: Orlando Logan MD DATE OF SERVICE: 09/14/2017 REFERRING PHYSICIAN: Yakelin Valles MD. CHIEF COMPLAINT: Right shoulder pain. HISTORY OF PRESENT ILLNESS: As you know, the patient is a very pleasant 72-year-old female, who returns today in followup visit with ongoing cervical radicular symptoms involving neck and left upper extremity, but also complaining of right shoulder pain. The patient states she can barely move her right shoulder without pain intensity. She has sustained 2 different falls. The first fall did not lead to any fractures, subluxations of the shoulder, but did lead to increasing pain. The second fall was unevaluated. She continues to experience pain from that point. She returns today requesting intraarticular shoulder injection in hopes of improving pain. ALLERGIES: SULFA, ERYTHROMYCIN AND PENICILLIN. CURRENT MEDICATIONS: Naproxen, pregabalin, nortriptyline, cyclobenzaprine, cyanocobalamin, cholecalciferol, Tecfidera, losartan, aspirin, and amlodipine. SOCIAL HISTORY: The patient continues to smoke up to 1 pack tobacco per day, has done so for years. Denies IV or illicit drug use. Denies any chronic alcohol use. The patient is unaccompanied today. IMAGING: Unavailable. PQRS: The patient does have known osteoarthritis. No rheumatoid arthritis. She does suffer from multiple sclerosis. She is treated for hypertension. She is not on blood thinners. She is a fall risk, has had falls in the past, but none recently. She uses a cane for ambulation. Pain score today is rated at around 10/10. PHYSICAL EXAMINATION: VITAL SIGNS: Blood pressure 122/54, pulse is 78, respiratory rate 16, unlabored. The patient is 100% on room air. Height 5 feet tall, weight 124.4 pounds, BMI calculated 24.3. GENERAL: Well-developed, well-nourished, well-hydrated 72-year-old female, [address] [address] PAIN MANAGEMENT CONSULTATION Name: PRISCA SOLIS Room #: REG [facility].#: [id number] Admission: 09/14/17 Attend Phys: Orlando Crews DO Discharge: Date of : 43 Report #: [id number] appears in moderate distress secondary to pain, placing her pain score 10/10. HEENT: Normocephalic, atraumatic. Pupils equal, round, reactive to light. Extraocular muscles are intact. EXTREMITIES: Show no clubbing, no cyanosis, no edema. MUSCULOSKELETAL: Active and passive range of motion of right shoulder is met with increasing pain. Active range of motion is severely restricted. Passive range of motion is moderate to severely restricted. Pain is generated with all maneuvers. Palpatory tenderness over the shoulder noted. No ecchymosis. Spurling's test remains positive left. ASSESSMENT: 1. Left shoulder pain. 2. Left shoulder osteoarthritis. 3. Chronic cervical radiculopathy. 4. Cervical spondylosis with radiculopathy. 5. Multiple sclerosis. 6. Chronic intractable pain. PLAN: 1. The patient returns today in followup visit indicating increasing shoulder pain and disability. The patient and I discussed at length treatment options for right shoulder pain. This would include physical therapy stretching exercises. We discussed medication management with nonsteroidal anti-inflammatories, whether this be oral or topical. We discussed intraarticular shoulder injections and surgical options. After reviewing risks and benefits of all proposed treatment options, the patient chose to begin with intraarticular shoulder injection. She has been advised risks and benefits of this procedure. These risks include but are not necessarily limited to bleeding, bruising, infection, worsening pain, no relief of pain, also risk of temporary or permanent muscle weakness, temporary or permanent nerve damage, possible joint destruction and . The patient states understood and wished to proceed. 2. No medication changes were made at today's visit. The patient to continue current medical therapy as previously prescribed. 3. We will see the patient back in followup visit on an as needed basis. We did advise the patient if she does not note significant pain improvement with this intraarticular shoulder injection, she should follow up with Orthopedics for possible surgical options. PROCEDURE NOTE DESCRIPTION OF PROCEDURE: Right intraarticular shoulder injection under fluoroscopic guidance. After obtaining written consent, the patient was taken back to fluoroscopy suite, placed in the supine position. The image intensifier was then brought [address] [address] PAIN MANAGEMENT CONSULTATION Name: WILLPRISCA Room #: REG [facility] Merino#: [id number] Admission: 09/14/17 Attend Phys: Orlando Crews DO Discharge: Date of : 43 Report #: [id number] into position over the right shoulder and AP imaging was obtained. The area was sterilely prepped with chlorhexidine. A sterile marker was then placed over the injection site. Imaging was obtained to confirm injection position. A 27-gauge 1-1/4 inch needle was used to anesthetize skin and subcutaneous tissue with 2 mL of 1% lidocaine. A 25-gauge 2-inch needle was advanced under fluoroscopic guidance into the shoulder joint itself. This was done without pain or paresthesias. Needle was advanced until reaching the proximal head of the humerus. It was retracted approximately 1 mm and aspiration noted to be negative for heme. After this aspiration noted to be negative for heme, 0.3 mL of Omnipaque was injected demonstrating excellent shoulder arthrogram. After negative aspiration for heme, 3 mL of a solution containing 1 mL, 40 mg per mL, 40 mg total triamcinolone and 2 mL bupivacaine 0.5% injected slowly. Needle retracted chcf, flushed with 1 mL of 1% lidocaine and removed. Sterile bandage placed over injection site. The patient tolerated the procedure well, carefully escorted to recovery room in stable condition. No apparent complications. After meeting discharge criteria, the patient discharged home. <ELECTRONICALLY SIGNED> By: Orlando Crews DO 09/28/17 0858 [id number] [id number] Orlando Crews DO /nt
[2017-09-14 10:00] VITALS: BP 122/54
== END | disposition home or self-care (01) ==
LOC: PAIN 06:51
DX: M25.511 Pain in right shoulder (principal); M25.512 Pain in left shoulder; M19.012 Primary osteoarthritis, left shoulder; M47.22 Other spondylosis with radiculopathy, cervical region; G89.29 Other chronic pain; I10 Essential (primary) hypertension; G35 Multiple sclerosis; F17.210 Nicotine dependence, cigarettes, uncomplicated; Z79.899 Other long term (current) drug therapy; Z79.82 Long term (current) use of aspirin; Z88.0 Allergy status to penicillin; Z88.2 Allergy status to sulfonamides; Z88.8 Allergy status to other drugs, medicaments and biological substances

== ENCOUNTER → 2017-11-23 | Outpatient (CLI) | payer OTHER ==
[~2017-11-23] VITALS: Ht 152.4 cm; Wt 57.7 kg
--- NOTE | ~2017-11-23 | HPC ---
[facility] [address] [place] [address] PAIN MANAGEMENT CONSULTATION Name: PRISCA SOLIS [facility] [id number] Admission: 11/23/17 Attend Phys: Orlando Crews DO Discharge: Date of : 43 Report #: [id number] THIS REPORT FOR: //name// CC: Orlando Logan MD DATE OF SERVICE: 11/23/2017 REFERRING PHYSICIAN: Adria Logan MD. CHIEF COMPLAINT: Right shoulder pain. HISTORY OF PRESENT ILLNESS: As you know, the patient is a very pleasant 72-year-old female who returns today in followup visit with recurrent right shoulder pain. We have provided intra-articular shoulder injections in the past with good efficacy. She returns today reporting a pain level of around 5/10. States the pain is exacerbated with movement of her right arm or use of her right arm. Lying down tends to improve pain. She returns today requesting an intra-articular right shoulder injection under fluoroscopic guidance to address arthritic changes and labral tears of the right shoulder itself. She denies any new injury, new trauma that may have led to progression of symptoms. ALLERGIES: SULFA, ERYTHROMYCIN AND PENICILLIN. CURRENT MEDICATIONS: Naproxen, pregabalin, nortriptyline, cyclobenzaprine, cyanocobalamin, cholecalciferol, Tecfidera, losartan, aspirin, and amlodipine. SOCIAL HISTORY: The patient continues to smoke up to 1 pack tobacco per day. She has done so for years. Denies IV or illicit drug use. Denies any chronic alcohol use. She is accompanied by a family member present in room today. IMAGING: No new imaging is available. PQRS: The patient does have osteoarthritis. No rheumatoid arthritis. She does suffer from multiple sclerosis for which she is receiving treatment. She is treated for hypertension, but is not on any blood thinners. She is not a fall risk, has not had a fall in the past 3 months. She does use a cane for ambulation and balance. She is placing pain today at around 5/10 in the right shoulder. PHYSICAL EXAMINATION: VITAL SIGNS: Blood pressure 140/78, pulse 89, respiratory rate 16, unlabored. The patient is 100% on room air. Height 5 feet tall, weight 127.2 pounds, BMI calculated at 24.8. [address] [address] PAIN MANAGEMENT CONSULTATION Name: PRISCA SOLIS Room #: REG CL Wilber#: [id number] Admission: 11/23/17 Attend Phys: Orlando Crews DO Discharge: Date of : 43 Report #: [id number] GENERAL: Well-developed, well-nourished, well-hydrated 72-year-old female appearing stated age, placing current pain score 5/10. HEENT: Normocephalic, atraumatic. Pupils equal, round, reactive to light. Speech fluent. EXTREMITIES: Show no clubbing, no cyanosis, no edema. MUSCULOSKELETAL: Active and passive range of motion of right shoulder is met with increasing pain. There is severe restriction of motion actively as well as passively. Pain is generated with all maneuvers. Palpatory tenderness over the right shoulder. No ecchymosis, no changes in skin color or texture overlying the area. Spurling's test positive left. ASSESSMENT: 1. Right shoulder pain. 2. Right shoulder osteoarthritis. 3. Chronic cervical radiculopathy. 4. Cervical spondylosis with radiculopathy. 5. Multiple sclerosis. 6. Chronic intractable pain. PLAN: 1. The patient returns today in followup visit requesting a right intra-articular shoulder injection under fluoroscopic guidance. The patient received excellent benefit with previous injection up to 70% improvement in overall pain. Unfortunately, the patient's pain has returned. She has looked into possible surgical options including a total shoulder replacement on the right. She is hoping to avoid this for a period of time as she continues to be treated for her MS and other concomitant illnesses. She has requested the right intra-articular shoulder injection to be provided today to address 5/10 pain. The patient was advised the risks and benefits of a right shoulder injection. These risks include but not necessarily limited to bleeding, bruising, infection, worsening pain, no relief of pain, and also risk of temporary or permanent muscle weakness, temporary or permanent joint damage and . The patient states she understood and wished to proceed. 2. No medication changes made at today's visit. The patient will continue current medical therapy as previously prescribed. 3. The patient will return to our clinic on an as needed basis for repeat right shoulder injection or to address cervical radicular symptoms. PROCEDURE NOTE DESCRIPTION OF PROCEDURE: Right intra-articular shoulder injection under fluoroscopic guidance. After obtaining written consent, the patient was taken into the fluoroscopic imaging room and placed in a supine position. The image intensifier (C-arm) was [facility] [address] [place] [address] PAIN MANAGEMENT CONSULTATION Name: PRISCA SOLIS Room #: REG CLNoble Merino#: [id number] Admission: 11/23/17 Attend Phys: Orlando Crews DO Discharge: Date of : 43 Report #: [id number] brought into position over the right shoulder and AP imaging was obtained. A sterile marker was placed over the right shoulder and the shoulder was then prepped and draped in aseptic fashion. We marked the area overlying the site of injection with a sterile marker. A 27-gauge 1-1/4 inch needle was then used to anesthetize skin and subcutaneous tissue with 2 mL of 1% preservative-free lidocaine. A 27 gauge 1-1/4 inch needle was used to advance into the right shoulder joint under live fluoroscopy. After entering the joint, aspiration was noted to be negative for heme. 0.5 mL of Omnipaque was injected. A right shoulder arthrogram was obtained. After negative aspiration for heme, 3 mL of a solution containing 1 mL 40 mg per mL, 40 mg total triamcinolone, 2 mL bupivacaine 0.5% injected slowly. Needle retracted care home, flushed with 1 mL of 1% lidocaine and removed. Sterile bandage was placed over injection site. The patient tolerated the procedure well, carefully escorted to recovery room in stable condition. No apparent complications. After meeting discharge criteria, the patient discharged home. <ELECTRONICALLY SIGNED> By: Orlando Crews DO 11/24/17 0812 1003 [id number] Orlando Crews DO /nt
[2017-11-23 08:53] VITALS: BP 140/78
== END | disposition home or self-care (01) ==
LOC: PAIN 06:57
DX: M19.011 Primary osteoarthritis, right shoulder (principal); M47.22 Other spondylosis with radiculopathy, cervical region; G35 Multiple sclerosis; G89.29 Other chronic pain; Z88.2 Allergy status to sulfonamides; Z88.0 Allergy status to penicillin; Z88.8 Allergy status to other drugs, medicaments and biological substances; Z79.899 Other long term (current) drug therapy; F17.210 Nicotine dependence, cigarettes, uncomplicated

== ENCOUNTER → 2018-01-19 | Outpatient (CLI) | payer OTHER ==
[~2018-01-19] VITALS: Ht 152.4 cm; Wt 54.4 kg
--- NOTE | ~2018-01-19 | HPC ---
[facility] [address] [place] [address] PAIN MANAGEMENT CONSULTATION Name: PRISCA SOLIS Room #: REG [facility].#: [id number] Admission: 01/19/18 Attend Phys: Orlando Crews DO Discharge: Date of : 43 Report #: [id number] THIS REPORT FOR: //name// CC: Orlando Logan MD DATE OF SERVICE: 01/19/2018 REFERRING PHYSICIAN: Yakelin Valles MD. CHIEF COMPLAINT: Neck pain, left upper extremity pain with paresthesias. HISTORY OF PRESENT ILLNESS: As you know, the patient is a very pleasant 73-year-old female who returns today in followup visit with recurrent left neck and left shoulder pain with radiation all the way down the left arm. She does appear to be suffering from recurrent cervical radiculopathy, most recent treatment for cervical radiculopathy was nearly 7 months ago when she underwent the cervical epidural injection, which resolved her left neck, left upper extremity symptoms until just recently. The patient denies specific injury or trauma that may have led to symptom recurrence. She returns today requesting a cervical epidural injection to address ongoing left upper extremity paresthesias and pain. ALLERGIES: SULFA, ERYTHROMYCIN AND PENICILLIN. CURRENT MEDICATIONS: Naproxen, pregabalin, nortriptyline, cyclobenzaprine, cyanocobalamin, cholecalciferol, Tecfidera, losartan, aspirin and amlodipine. SOCIAL HISTORY: The patient continues to smoke 1 pack of tobacco per day and has done so for years. Denies IV or illicit drug use. Denies any chronic alcohol use. She is unaccompanied at today's visit. IMAGING: There is no new imaging available. PQRS: The patient has known osteoarthritis of the neck, bilateral shoulders, bilateral hands, low back. She has no rheumatoid arthritis. She does suffer from multiple sclerosis and is receiving treatment. She is treated for hypertension, but is not on any blood thinners. She is not a fall risk, has not had a fall in the last 3 months. She does use a cane periodically for ambulation. She places pain score 10/10. PHYSICAL EXAMINATION: VITAL SIGNS: Blood pressure 106/65, pulse 72, respiratory rate [address] [address] PAIN MANAGEMENT CONSULTATION Name: PRISCA SOLIS Room #: REG [facility]..#: [id number] Admission: 01/19/18 Attend Phys: Orlando Crews DO Discharge: Date of : 43 Report #: [id number] unlabored, the patient 99% on room air. Height 5 feet tall, weight 120 pounds, BMI calculated 23.4. GENERAL: Well-developed, well-nourished, well-hydrated 73-year-old female. She appears her stated age. She is placing current pain score at around 10/10. HEENT: Normocephalic, atraumatic. Pupils equal, round, reactive to light. Extraocular muscles are intact. EXTREMITIES: Show no clubbing, no cyanosis, no edema. MUSCULOSKELETAL: Active and passive range of motion of the right shoulder is met with increasing pain. Severe restriction of motion due to pain issues. Cervical provocation testing is met with increased pain. Pain is located on the left side with radiation down the left upper extremity. Spurling test positive left. Muscle bulk and tone appears equal and symmetrical in upper extremities. There is severe restriction of motion to the left due to pain generation of the cervical spine. ASSESSMENT: 1. Cervical radiculopathy. 2. Cervical spondylosis with radiculopathy. 3. Osteoarthritis of the shoulders bilaterally. 4. Chronic intractable pain. PLAN: 1. The patient returns today in followup visit to undergo next in the series of cervical epidural injections. She has done very well previous with cervical epidural injection with near 100% improvement in overall pain involving the neck and the left upper extremity until just recently. The last injection of the cervical region was in July. She is requesting we perform a repeat injection today. She was advised risks and benefits of procedure, states understood and wished to proceed. 2. No medication changes made at today's visit. The patient will continue current medical therapy as previously prescribed. 3. We will see the patient back in followup visit on an as needed basis for possible next in a series of cervical epidural injections or to address any other pain generators. PROCEDURE NOTE DESCRIPTION OF PROCEDURE: C7-T1 cervical epidural steroid injection under fluoroscopic guidance. After obtaining written consent, the patient was taken back to fluoroscopy suite, placed in prone position with separate pillows under chest and forehead to decrease the cervical lordosis. Skin overlying cervical area then prepped and draped in aseptic fashion. C7-T1 cervical interspace identified by AP fluoroscopy. Skin and subcutaneous tissue overlying target site of injection was anesthetized with 3 mL of 1% lidocaine. [address] [address] PAIN MANAGEMENT CONSULTATION Name: PRISCA SOLIS Room #: [facility]#: [id number] Admission: 01/19/18 Attend Phys: Orlando Crews DO Discharge: Date of : 43 Report #: [id number] A 20-gauge 3-1/2 inch Tuohy needle was advanced under fluoroscopic guidance towards the epidural space using a midline approach. Epidural space identified using loss of resistance to air technique. After negative aspiration for heme or cerebrospinal fluid, 1 mL of Omnipaque injected. A cervical epidurogram confirmed using both AP and oblique fluoroscopy. After negative aspiration for heme or cerebrospinal fluid, 5 mL solution containing 2 mL 40 mg per mL 80 mg total triamcinolone, 3 mL lidocaine 1% injected slowly. Needle retracted care home, flushed with 1 mL of 1% lidocaine and removed. Sterile bandage placed over injection site. No new motor deficits present in the upper extremity following procedure. The patient tolerated procedure well, carefully escorted to recovery room in stable condition. No apparent complications. After meeting discharge criteria, the patient is discharged home. By: [id number] Orlando Crews DO /nt
[2018-01-19 08:07] VITALS: BP 106/65
== END | disposition home or self-care (01) ==
LOC: PAIN 07:46
DX: M47.22 Other spondylosis with radiculopathy, cervical region (principal); M19.011 Primary osteoarthritis, right shoulder; M19.012 Primary osteoarthritis, left shoulder; G89.29 Other chronic pain; I10 Essential (primary) hypertension; F17.210 Nicotine dependence, cigarettes, uncomplicated; Z88.2 Allergy status to sulfonamides; Z88.0 Allergy status to penicillin; Z79.899 Other long term (current) drug therapy; Z79.82 Long term (current) use of aspirin

== ENCOUNTER → 2018-04-13 | Outpatient (CLI) | payer OTHER | LOC: MRI 09:41 | DX: M75.101 Unspecified rotator cuff tear or rupture of right shoulder, not specified as traumatic (principal); M75.102 Unspecified rotator cuff tear or rupture of left shoulder, not specified as traumatic; M19.011 Primary osteoarthritis, right shoulder; M19.012 Primary osteoarthritis, left shoulder; M25.712 Osteophyte, left shoulder; M75.91 Shoulder lesion, unspecified, right shoulder; I10 Essential (primary) hypertension ==

== ENCOUNTER → 2019-04-12 | Outpatient (CLI) | payer OTHER ==
[~2019-04-12] VITALS: Ht 152.4 cm; Wt 54.7 kg
[2019-04-12 08:49] VITALS: BP 131/75
--- NOTE | 2019-04-12 09:13 | NUR ---
Pain Clinic Assessment: 1. History of Osteoarthritis: NECK History of Rheumatoid Arthritis: Not Applicable 2. Height: 5 ft. 0 in. 152.4 cm. Weight: 120.6 lb. oz. 54.704 kg. Patient's BMI: 23.6 3. Vital Signs: BP: 131/75 Pulse: 72 Resp: 14 Temp: 02 Sat: 100 ECG Mon: 4. Pain Intensity: 6-7-NOW 5. Fall Risk: Dizziness: N Needs help standing or walking: Y Fallen in the last 3 months: N Fall risk comments: 6. Patient on Blood Thinner: None 7. History of Hypertension: Y 8. Opioid Therapy greater than 6 weeks: Y Opiate Contract Signed: 9. Risk Assessment Tool Provided: LOW RISK 0/0 10. Functional Assessment Tool: 11. Recreational Drug Use: Never Drug Type: Tobacco Use: Light Tobacco Smoker Tobacco Type: Amount or Packs/day: 1-2 A DAY How Many Years: Alcohol Use: No Frequency: Quant:
--- NOTE | 2019-04-18 07:47 | HPC ---
[facility] [address] [place] [address] PAIN MANAGEMENT CONSULTATION Name: PRISCA SOLIS Room #: REG [facility].#: [id number] Admission: 04/12/19 Attend Phys: Orlando Crews DO Discharge: Date of : 43 Report #: [id number] THIS REPORT FOR: //name// CC: Orlando Valles MD DATE OF SERVICE: 04/12/2019 REFERRING PHYSICIAN: Yakelin Valles MD CHIEF COMPLAINT: Left neck and left upper extremity pain. HISTORY OF PRESENT ILLNESS: As you know, the patient is a 74-year-old female who returns today in followup visit with recurrent left neck pain and left upper extremity pain with paresthesias. The patient indicates pain level today of approximately 6-7/10. She returns today in followup visit requesting to undergo cervical epidural injection under fluoroscopic guidance per the request of her PCP to address recurrent cervical radicular pain. She indicates no injury or trauma that may have led to symptom reoccurrence. She states she woke about 2 weeks ago with the pain and this has progressively worsened. X-ray imaging has been obtained of the bilateral shoulders, which apparently shows some arthritic changes, but no specific pathology that would be leading to her current symptoms. ALLERGIES: SULFA, ERYTHROMYCIN, AND PENICILLIN. CURRENT MEDICATIONS: Atorvastatin, naproxen, cyanocobalamin, cholecalciferol, and aspirin. SOCIAL HISTORY: The patient continues to smoke approximately 1 pack tobacco per day, has done so for years. Denies IV or illicit drug use. Denies any chronic alcohol use. She is unaccompanied today. IMAGING: No new imaging available. PQRS: The patient has known arthritic changes of the cervical spine, bilateral shoulders, bilateral hands and low back. No rheumatoid arthritis. She is placing pain intensity at 6-7/10. She is a fall risk, but has not had a fall in last 3 months. She does use a cane for ambulation. She is treated for hypertension, but not on any blood thinners. She is treated with chronic opioids and has a low opioid addiction potential, placing pain impact score today 27/70 moderate interference of daily activities secondary to pain. PHYSICAL EXAMINATION: VITAL SIGNS: Blood pressure 131/75, pulse 72, respiratory rate 14 and [facility] [address] [place] [address] PAIN MANAGEMENT CONSULTATION Name: PRISCA SOLIS Room #: REG [facility].#: [id number] Admission: 04/12/19 Attend Phys: Orlando Crews DO Discharge: Date of : 43 Report #: [id number] unlabored. The patient is 100% on room air. Height 5 feet tall, weight 120.6 pounds, BMI calculated 23.6. GENERAL: Well-developed, well-nourished, well-hydrated, thin, 74-year-old female appearing stated age, pain is rated today 6-7/10. HEENT: Normocephalic, atraumatic. Pupils equal, round, reactive to light. EXTREMITIES: Show no clubbing, no cyanosis, and no edema. MUSCULOSKELETAL: There is palpatory tenderness noted over the trapezius on the left when compared to the right. Deep palpation of the area causes intensification of pain. Active and passive range of motion of left shoulder is met with severe increase in overall pain, moderate restriction in motion. Pain is also elicited with deep palpation over the acromioclavicular joint on the left when compared to the right. There is well-healed surgical scar over the left shoulder. Cervical provocation testing is met with increasing overall pain, mainly with rotation and lateral flexion to the left. Spurling's test is equivocal to the left. ASSESSMENT: 1. Cervical radiculopathy. 2. Cervical spondylosis with radicular symptoms. 3. Left shoulder pain. 4. Chronic intractable pain. PLAN: 1. The patient returns today in followup visit per the request of her PCP to undergo a cervical epidural injection under fluoroscopic guidance. Workup has begun on the bilateral shoulders and there are noted surgical changes, but there is concern that the findings that she has today are related more to the cervical spine. She has been referred back to our clinic to trial a cervical epidural injection and determine if her symptoms can improve with such procedures. The patient and I discussed this at length today. She does have a component of cervical radiculopathy, though I am not confident this is the main generator in the patient today. She is much more tender and having restriction of motion of the left shoulder, which could be due to cervical radiculopathy, though I believe there are 2 different pain generators in the area. We will address the cervical radicular symptoms today and have the PCP followup for the patient in regards to the left shoulder pain. The patient was advised risks and benefits of repeated cervical epidural injection. These risks include but are not necessarily limited to bleeding, bruising, infection, worsening pain, no relief of pain, also risk of temporary or permanent muscle weakness, temporary or permanent nerve damage, possible paralysis and . The patient states she understood and wished to proceed. 2. No medication changes made at today's visit. The patient will continue current medical therapy as prior prescribed. 3. We will see the patient back in followup visit for possible next in the series of cervical epidural injections. She will follow up with her PCP in [address] [place] [address] PAIN MANAGEMENT CONSULTATION Name: PRISCA SOLIS [facility] [id number] Admission: 04/12/19 Attend Phys: Orlando Crews DO Discharge: Date of : 43 Report #: [id number] regards to the left shoulder. DESCRIPTION OF PROCEDURE: C7-T1 cervical epidural steroid injection under fluoroscopic guidance. After obtaining written consent, the patient was taken back to fluoroscopy suite, placed in prone position with separate pillows under chest and forehead to decrease cervical lordosis. Skin overlying cervical area prepped and draped in aseptic fashion. C7-T1 cervical interspace identified by AP fluoroscopy. Skin and subcutaneous tissue overlying target site of injection anesthetized with 3 mL of 1% lidocaine. A 20-gauge 3-1/2 inch Tuohy needle advanced under fluoroscopic guidance towards the epidural space using a midline approach. Epidural space identified using loss of resistance to air technique. After negative aspiration for heme or cerebrospinal fluid, 1 mL of Omnipaque injected. Cervical epidurogram confirmed using both AP and lateral fluoroscopy. After negative aspiration for heme or cerebrospinal fluid, 5 mL of a solution containing 2 mL 40 mg per mL, 80 mg total triamcinolone along with 3 mL of lidocaine 1% injected slowly. Needle then retracted half-way, flushed with 1 mL of 1% lidocaine and then removed. Sterile bandage placed over injection site. No new motor deficits present in the upper extremities or lower extremities following the procedure. The patient tolerated the procedure well, carefully escorted to the recovery room in stable condition. No apparent complications. After meeting discharge criteria, the patient discharged home. <ELECTRONICALLY SIGNED> By: Orlando Crews DO 04/18/19 0747 [id number] Orlando Crews DO /nt
== END | disposition home or self-care (01) ==
LOC: PAIN 06:50
DX: M47.22 Other spondylosis with radiculopathy, cervical region (principal); G89.29 Other chronic pain; I10 Essential (primary) hypertension; F17.210 Nicotine dependence, cigarettes, uncomplicated; Z88.2 Allergy status to sulfonamides; Z88.8 Allergy status to other drugs, medicaments and biological substances; Z79.899 Other long term (current) drug therapy; Z79.82 Long term (current) use of aspirin

== ENCOUNTER → 2020-02-27 | Outpatient (CLI) | payer OTHER ==
[~2020-02-27] VITALS: Ht 152.4 cm; Wt 58.9 kg
[~2020-02-27] MED LIST changes: +diclofenac sodium PO
[2020-02-27 13:26] VITALS: BP 141/69
--- NOTE | 2020-02-27 13:44 | NUR ---
Pain Clinic Assessment: 1. History of Osteoarthritis: NECK History of Rheumatoid Arthritis: Not Applicable 2. Height: 5 ft. 0 in. 152.4 cm. Weight: 129.8 lb. oz. 58.877 kg. Patient's BMI: 25.3 3. Vital Signs: BP: 141/69 Pulse: 71 Resp: 14 Temp: 02 Sat: 99 ECG Mon: 4. Pain Intensity: 10 5. Fall Risk: Dizziness: N Needs help standing or walking: Y Fallen in the last 3 months: Y Fall risk comments: 6. Patient on Blood Thinner: None 7. History of Hypertension: Y 8. Opioid Therapy greater than 6 weeks: Y Opiate Contract Signed: 9. Risk Assessment Tool Provided: LOW RISK 0/0 10. Functional Assessment Tool: 11. Recreational Drug Use: Never Drug Type: Tobacco Use: Light Tobacco Smoker Tobacco Type: Cigarettes Amount or Packs/day: How Many Years: Alcohol Use: No Frequency: Quant:
--- NOTE | 2020-02-28 12:57 | HPC ---
[facility] [address] [place] [address] PAIN MANAGEMENT CONSULTATION Name: PRISCA SOLIS Room #: REG [facility].#: [id number] Admission: 02/27/20 Attend Phys: Orlando Crews DO Discharge: Date of : 43 Report #: [id number] THIS REPORT FOR: cc: Yakelin Valles MD,Yakelin Crews,Orlando Beauchamp DO ~ DATE OF SERVICE: 02/27/2020 REFERRING PHYSICIAN: Yakelin Valles MD CHIEF COMPLAINT: Left neck pain, left upper extremity pain with paresthesias. HISTORY OF PRESENT ILLNESS: As you know, the patient is a pleasant a 75-year-old female with longstanding history of cervical radiculopathy involving the left neck and left upper extremity. She returns today in followup visit reporting a pain score of around 10/10. She denies new injury or trauma that may have led to symptom reoccurrence. She indicates pain begins in the left neck, radiates into the left arm and down to the hand. She has trialled conservative medication management including [id number] medications without benefit. She tried rest, relaxation and some stretching exercises again ineffective. She has returned today in followup visit requesting to undergo cervical epidural injection under fluoroscopic guidance to address recurrent cervical radiculopathy. ALLERGIES: SULFA, ERYTHROMYCIN, AND PENICILLIN. CURRENT MEDICATIONS: Aspirin 81 mg per day, cholecalciferol 2000 units once a day, cyanocobalamin 1000 mcg per day, atorvastatin 40 mg per day, Tecfidera 240 mg twice a day, diclofenac sodium 75 mg twice a day. SOCIAL HISTORY: The patient denies IV or illicit drug use. Denies any chronic alcohol use. She smokes 1-pack of tobacco per day and has done so for multiple years. She is unaccompanied today. IMAGING: No new imaging available. PQRS: The patient has known arthritic changes of the cervical spine, bilateral shoulders, bilateral hands and lumbar spine. No rheumatoid arthritis. She is placing pain score 10/10. She is a fall risk and has had multiple falls in the last 3 months. She is utilizing a 3-prong cane for ambulation. She is not on blood thinners, but is treated for hypertension. She is on chronic opioids with a low opiate addiction potential. Pain impact is 27/70, moderate interference with daily activity secondary to pain. PHYSICAL EXAMINATION: [facility] [address] [place] [address] PAIN MANAGEMENT CONSULTATION Name: PRISCA SOLIS Room #: REG [facility]#: [id number] Admission: 02/27/20 Attend Phys: Orlando Crews DO Discharge: Date of : 43 Report #: [id number] VITAL SIGNS: Blood pressure 141/69, pulse 71, respiratory rate 14 and unlabored. The patient is 99% on room air. Height 5 feet tall, weight 129.8 pounds, BMI calculated 25.3. GENERAL: Well-developed, well-nourished, well-hydrated, 75-year-old female. She appears stated age, pain is rated around 10/10. HEENT: Normocephalic, atraumatic. Pupils equal, round and reactive. NEUROLOGIC: Speech is fluent. The patient is in a mask in compliance with COVID-19 restrictions. LUNGS: The patient is able to complete full sentences. There is no audible wheezing or rhonchi. EXTREMITIES: Show no clubbing, no cyanosis and no appreciable edema. MUSCULOSKELETAL: Palpatory tenderness is noted once again over the left neck and trapezius area. Cervical provocation testing is met with significant restriction of motion to the left, moderate restriction of motion to the right. Passive and active range of motion of the left shoulder is met with increased pain. Spurling's test positive left, negative right. ASSESSMENT: 1. Cervical radiculopathy. 2. Cervical spondylosis with radicular symptoms. 3. Chronic left shoulder pain. 4. Osteoarthritis of the left shoulder. 5. Chronic intractable pain. PLAN: 1. The patient returns today in followup visit to undergo cervical epidural injection under fluoroscopic guidance to address recurrent cervical radicular symptoms. She is also experiencing intense pain in the shoulder, likely due to repeated rotator cuff injury. The patient has not sought evaluation through Orthopedics, but I believe needs to do so in response to the left shoulder pain noted with active and passive range of motion today. The patient will follow up with her PCP in regards to orthopedic referral. As for the cervical radiculopathy, I believe the patient would do well with a cervical epidural injection. The patient is agreeable to undergo the procedure. The patient has been advised of the risks and benefits of a cervical epidural injection. These risks include but are not necessarily limited to bleeding, bruising, infection, worsening pain, no relief of pain, also risk of temporary or permanent muscle weakness, temporary or permanent nerve damage, possible post-dural puncture headache and . The patient states understood and wished to proceed. 2. No medication changes made at today's visit. The patient will continue current medical therapy. 3. We will see the patient back in followup visit on an as needed basis for possible next in the series of cervical epidural injections. She will follow up with her PCP in regards to ongoing left shoulder pain. [address] [address] PAIN MANAGEMENT CONSULTATION Name: PRISCA SOLIS Room #: REG [facility]#: [id number] Admission: 02/27/20 Attend Phys: Orlando Crews DO Discharge: Date of : 43 Report #: [id number] PROCEDURE NOTE DESCRIPTION OF PROCEDURE: C7-T1 cervical epidural steroid injection under fluoroscopic guidance. After obtaining written consent, the patient was taken back to fluoroscopy suite, placed in prone position with separate pillows under chest and forehead to decrease cervical lordosis. Skin overlying the cervical area then prepped and draped in aseptic fashion. C7-T1 cervical interspace identified by AP fluoroscopy. Skin and subcutaneous tissue overlying target site of injection anesthetized with 3 mL of 1% lidocaine. A 20-gauge 3-1/2 inch Tuohy needle advanced under fluoroscopic guidance towards the epidural space using midline approach. Epidural space was identified using loss of resistance to air technique. After negative aspiration for heme or cerebrospinal fluid, 1 mL of Omnipaque injected. A cervical epidurogram was confirmed using both AP and oblique fluoroscopy. After negative aspiration for heme or cerebrospinal fluid, 5 mL of a solution containing 2 mL 40 mg per mL, 80 mg total triamcinolone along with 3 mL of lidocaine 1% injected slowly. Needle then retracted approximately half way, flushed with 1 mL of 1% lidocaine and then removed. Sterile bandage placed over injection site. No new motor deficits present in the upper extremities following procedure. The patient tolerated the procedure well, carefully escorted to recovery room in stable condition. No apparent complications. After meeting discharge criteria, the patient discharged home. <ELECTRONICALLY SIGNED> By: Orlando Crews DO 02/28/20 1257 [id number] 1920 Orlando Crews DO /nt
== END | disposition home or self-care (01) ==
LOC: PAIN 06:57
PROVIDERS: ATTEND Anesthesiology Pain Medicine
DX: M47.22 Other spondylosis with radiculopathy, cervical region (principal); G89.29 Other chronic pain; M19.012 Primary osteoarthritis, left shoulder; M25.512 Pain in left shoulder; I10 Essential (primary) hypertension; M19.90 Unspecified osteoarthritis, unspecified site; Z98.890 Other specified postprocedural states; Z79.899 Other long term (current) drug therapy; Z88.2 Allergy status to sulfonamides; Z79.891 Long term (current) use of opiate analgesic; Z88.0 Allergy status to penicillin

== ENCOUNTER → 2020-03-05 | Outpatient (CLI) | payer OTHER ==
[~2020-03-05] VITALS: Ht 152.4 cm; Wt 58.5 kg
--- NOTE | ~2020-03-05 | HPC ---
[facility] [address] [place] [address] PAIN MANAGEMENT CONSULTATION Name: PRISCA SOLIS Room #: REG [facility]..#: [id number] Admission: 03/05/20 Attend Phys: Orlando Crews DO Discharge: Date of : 43 Report #: [id number] THIS REPORT FOR: cc: Yakelin Valles MD,Yakelin Crews,Orlando Beauchamp DO ~ CC: Orlando Valles MD DATE OF SERVICE: 03/05/2020 CHIEF COMPLAINT: Left neck pain, left upper extremity pain. HISTORY OF PRESENT ILLNESS: As you know, the patient is a 75-year-old female who has returned today in followup visit having noted has a minimal improvement with the cervical epidural injection provided at our last visit. The patient and I have had discussions in the past that if her symptoms begin to be unresponsive to injection therapy then other treatments may be necessary. The fact that she did not receive much in the way of improvement with the previous cervical epidural injection provided last week. She came to our clinic today as a drop by to discuss options for treatment. She was admitted through the clinic and was being seen today with reported pain score of 7-8/10. She describes the pain as sharp, shooting, electrical like sensation. Nothing tends to improve pain. She has returned to discuss options for treatment. The patient denies new injury, trauma or any changes in medical history. ALLERGIES: SULFA, ERYTHROMYCIN, AND PENICILLIN. CURRENT MEDICATIONS: Diclofenac sodium 75 mg b.i.d., Tecfidera 240 mg twice a day, atorvastatin 40 mg once a day, cyanocobalamin 500 mcg 2 tabs per day, cholecalciferol 2000 units per day, aspirin 81 mg per day. SOCIAL HISTORY: The patient reports she continues to smoke about 1-pack per month. She denies IV or illicit drug use. Denies any chronic alcohol use. She is unaccompanied at today's visit. PQRS: The patient has known arthritic changes of cervical spine, bilateral shoulders, bilateral hands and low back. No rheumatoid arthritis. Placing pain intensity 7-8/10. She is a fall risk, but has not had a fall in last 3 months. She does use a cane for ambulation. She is treated for hypertension, but not on any blood thinners. She is treated for chronic opioids, has a low opiate addiction potential. Pain impact reported today at 35/70, moderate interference in daily activities secondary to pain. PHYSICAL EXAMINATION: [facility] [address] [place] [address] PAIN MANAGEMENT CONSULTATION Name: PRISCA SOLIS [id number] Admission: 03/05/20 Attend Phys: Orlando Crews DO Discharge: Date of : 44 Report #: [id number] VITAL SIGNS: Blood pressure 154/65, pulse 70, respiratory rate 14 and unlabored. The patient is 100% on room air. Height 5 feet tall, weight 129 pounds and BMI calculated 25.2. GENERAL: Well-developed, well-nourished, well-hydrated 75-year-old female, appears in moderate distress secondary to pain, placing current pain score 7-8/10. HEENT: Normocephalic, atraumatic. Pupils equal, round and reactive. NEUROLOGIC: Speech is fluent. The patient deemed a good historian. EXTREMITIES: Show no clubbing, no cyanosis, and no noted edema. MUSCULOSKELETAL: Upper extremity strength appears equal and symmetrical. There is again tenderness to palpation over the trapezius on the left and radiation towards the shoulder. Active and passive range of motion of shoulders met with severe pain with moderate restriction consistent with her previous rotator cuff surgery and restrictions due to surgical changes. Spurling's test is positive, the left. ASSESSMENT: 1. Cervical radiculopathy. 2. Cervical spondylosis with radiculopathy. 3. Chronic left shoulder pain. 4. Chronic intractable pain. PLAN: 1. The patient returns today in followup visit having noted no significant pain improvement with the epidural injection provided at last visit. We have reviewed the imaging from that injection and there was an appropriate spread within the cervical epidural space consistent with a cervical epidural injection. The fact the patient did not receive improvement in symptoms is concerning as she typically has good response. She complains of left shoulder pain, which is completely resolved with previous epidural injections, thus indicating more of a cervical radicular component. I am concerned the patient's cervical spine has had changes that are no longer amenable to epidural injections and she may have to look towards more aggressive treatment options. We will need further imaging to determine the pathology and the changes that have occurred. 2. The patient will undergo MRI of the cervical spine without contrast. We will send the patient for the imaging studies immediately. The patient indicates that she recently had MRA and MRI of the head requested by her neurologist. We will look to see if there is cervical imaging in those scans if not a cervical MRI will be necessary. We will obtain the scans as quickly as possible from her recent imaging and determine if we need to move forward with the cervical imaging. 3. We have provided the patient with a prescription of tramadol 50 mg dose. She can take 1 tab q.i.d. p.r.n. pain. I have given the patient #120 tablets that is 30-day prescription. I have provided the patient with the medication to provide analgesic benefit as we continue the workup for her cervical radicular [facility] [address] [place] [address] PAIN MANAGEMENT CONSULTATION Name: PRISCA SOLIS Room #: REG CL M..#: [id number] Admission: 03/05/20 Attend Phys: Orlando Crews DO Discharge: Date of : 43 Report #: [id number] symptoms in the left shoulder pain. She will watch for side effects with its use including somnolence, decreased mental acuity, disorientation, confusion, mental slowing. If she notes any of those side effects, discontinue immediately. 4. The patient will be contacted if we have cervical imaging from her recent MRI of the brain requested by her neurologist. If this is the case, we do not need further imaging of the cervical spine. If we need of the imaging, the patient had the prescription and will fill after she received a phone call from us. 5. We will see the patient back in followup visit once she has completed her imaging studies if necessary and we will discuss the findings and discuss treatment options. By: [id number] Orlando Crews DO /nt
[2020-03-05 10:05] VITALS: BP 154/65
--- NOTE | 2020-03-05 10:21 | NUR ---
Pain Clinic Assessment: 1. History of Osteoarthritis: NECK History of Rheumatoid Arthritis: Not Applicable 2. Height: 5 ft. 0 in. 152.4 cm. Weight: 129.0 lb. oz. 58.514 kg. Patient's BMI: 25.2 3. Vital Signs: BP: 154/65 Pulse: 70 Resp: 14 Temp: 02 Sat: 100 ECG Mon: 4. Pain Intensity: 0 now, 7-8 with episode 5. Fall Risk: Dizziness: N Needs help standing or walking: Y Fallen in the last 3 months: N Fall risk comments: 6. Patient on Blood Thinner: None 7. History of Hypertension: Y 8. Opioid Therapy greater than 6 weeks: Y Opiate Contract Signed: 9. Risk Assessment Tool Provided: LOW RISK 0 10. Functional Assessment Tool: 11. Recreational Drug Use: Never Drug Type: Tobacco Use: Light Tobacco Smoker Tobacco Type: Cigarettes Amount or Packs/day: 1 pack/2 mo How Many Years: Alcohol Use: No Frequency: Quant:
== END ==
LOC: PAIN 09:51
PROVIDERS: ATTEND Anesthesiology Pain Medicine
DX: M47.22 Other spondylosis with radiculopathy, cervical region (principal); M25.512 Pain in left shoulder; G89.29 Other chronic pain

== ENCOUNTER → 2020-04-02 | Outpatient (CLI) | payer OTHER ==
[~2020-04-02] VITALS: Ht 152.4 cm; Wt 59.6 kg
--- NOTE | ~2020-04-02 | HPC ---
[facility] [place] [address] PAIN MANAGEMENT CONSULTATION Name: PRISCA SOLIS Room #: REG [facility]..#: [id number] Admission: 04/02/20 Attend Phys: Orlando Crews DO Discharge: Date of : 43 Report #: [id number] THIS REPORT FOR: cc: Yakelin Valles MD,Yakelin Crews,Orlando Beauchamp DO ~ CC: Orlando Valles MD DATE OF SERVICE: 04/02/2020 CHIEF COMPLAINT: Left neck pain, left shoulder pain, left upper extremity pain with paresthesias. HISTORY OF PRESENT ILLNESS: As you know, the patient is a very pleasant 75-year-old female returning in followup visit reporting pain intensity of 10/10. She is localizing pain directly over the left shoulder. She states movement causes exacerbation of symptoms. She does not report any radicular component to her pain today. I have evaluated her left shoulder in the past and she has undergone intra-articular injections with good benefit. Her symptoms today do not appear to be related to the cervical region. We did have the patient undergo CT examination at our last visit and it did show changes within the neural foramen, but no significant changes from previous evaluation. The patient and I had discussed in our last visit that if a cervical epidural injection, as provided at our last visit did not give good benefit, we would look towards the left shoulder as a source of the symptoms that she is presently experiencing. She contacted our clinic advising us of the cervical epidural injection provided no benefit and this warranted today's appointment to undergo intra-articular left shoulder injection. She indicates pain is exacerbated with movement. It has been keeping her up at night as she cannot lay on that side, which is her typical side of sleep. She has recently seen her neurologist in regards to MS. Apparently, no changes in medication therapy were necessary as she does seem to be fairly stable from that ___ disease process. She returns today in followup visit with an intra-articular shoulder injection. ALLERGIES: SULFA, ERYTHROMYCIN, AND PENICILLIN. CURRENT MEDICATIONS: Diclofenac sodium, Tecfidera, atorvastatin, cyanocobalamin, cholecalciferol, and aspirin. SOCIAL HISTORY: The patient reports she smokes about a pack of tobacco a month. She denies IV or illicit drug use. Denies any chronic alcohol use. She is accompanied by her who is present at the appointment today. IMAGING: MRI of the cervical spine is 03/13/2020. Findings Show no evidence of [facility] [address] [place] [address] PAIN MANAGEMENT CONSULTATION Name: PRISCA SOLIS Room #: REG CL Wilber#: [id number] Admission: 04/02/20 Attend Phys: Orlando Crews DO Discharge: Date of : 43 Report #: [id number] multiple sclerosis, cervical and superior thoracic cord signal abnormalities as stated. Subtle focus of enhancement in the anterior cord at the T4 level. Cervical cord signal abnormality is similar to previous showing changes at C5-C6 level. Thinning of the cord centered at the T1. Mild central canal stenosis at C4-C5 and C5-C6. Neural foraminal compromise due to facet and uncovertebral hypertrophy on the right and lesser degree on the left. PQRS: The patient has known arthritic changes of the cervical spine, bilateral shoulders, bilateral hands and low back. No rheumatoid arthritis. She is placing pain intensity at 10/10. She is a fall risk, but has not had a fall in last 3 months. She is not on blood thinners, but is treated for hypertension. She is on chronic opioids with a low opiate addiction potential. Pain impact /. Moderate interference of daily activities secondary to pain. PHYSICAL EXAMINATION: VITAL SIGNS: Blood pressure 137/70, pulse 88, respiratory rate 18 and unlabored. The patient is 96% on room air. Height 5 feet tall, weight 131.4 pounds, BMI calculated 25.7. GENERAL: Well-developed, well-nourished, well-hydrated 75-year-old female appearing stated age. She is in moderate distress secondary to pain, placing current pain score at around 10/10. HEENT: Normocephalic, atraumatic. Pupils equal, round and reactive. Speech is fluent. EXTREMITIES: Show no clubbing, no cyanosis. No appreciable edema. MUSCULOSKELETAL: Active and passive range of motion of left shoulder causes intensification of pain. Palpatory tenderness is noted anterior and posterior on the left shoulder. There is also significant tenderness over the biceps tendon on the left when compared to the right. No kelle crepitus noted with movement. There is a cervical tenderness to palpation. ASSESSMENT: 1. Cervical radiculopathy. 2. Multiple sclerosis with changes of the cervical cord. 3. Chronic left shoulder pain. 4. Osteoarthritis of the bilateral shoulders. PLAN: 1. The patient returns today in followup visit indicating previous cervical epidural injection provided no significant pain relief. I do have concerns that the changes at the C5-C6 level may be the source of her neuropathic symptoms, though difficult to determine. It is noted that there has been no significant changes at the C5-C6 level, though her distribution symptoms are consistent with the findings from the cervical region. There is also concern that the patient may be experiencing increased shoulder pain due strictly to osteoarthritic changes and post-surgical changes such as scarring tissue. We have agreed to have the patient undergo a left intra-articular shoulder injection today as she [facility] [address] [place] [address] PAIN MANAGEMENT CONSULTATION Name: PRISCA SOLIS Room #: REG [facility]#: [id number] Admission: 04/02/20 Attend Phys: Orlando Crews DO Discharge: Date of : 43 Report #: [id number] received no benefit with a cervical epidural injection. We are trying to determine the source of the patient's symptoms and to determine how much of her pain is generated from the left shoulder versus how much is related to the cervical region. The patient is agreeable to undergo the procedure today. The patient has been advised risks and benefits of a left intra-articular shoulder injection. These risks include but are not necessarily limited to bleeding, bruising, infection, worsening pain, no relief of pain, also risk of temporary or permanent muscle weakness, temporary or permanent, joint damage. The patient states understood and wished to proceed. 2. No medication changes made at today's visit. At this time, we are going to continue the medications as currently prescribed and make adjustments if necessary based on efficacy with this injection. She will contact our clinic in the next 72 hours to advise the effects. 3. We will plan to see the patient back in followup visit based on our conversation in about 72-96 hours when we determine efficacy of today's injection. PROCEDURE NOTE DESCRIPTION OF PROCEDURE: Left intra-articular shoulder injection under fluoroscopic guidance. After obtaining written consent, the patient was taken back to fluoroscopy suite, placed in a supine position. Image intensifier/C-arm was brought into position over the left shoulder and AP imaging was obtained. The area was prepped with chlorhexidine and marked with a sterile marker. A 27-gauge 1-1/4 inch needle was then used to anesthetize skin and subcutaneous tissue with 2 mL of 1% lidocaine. A 27-gauge 1-1/4 inch needle was then used to advance into the left shoulder under fluoroscopic guidance. Needle was advanced until reaching the proximal head of the humerus. After reaching the proximal head, the needle was then retracted 1 mm and aspiration noted to be negative for heme. After negative aspiration for heme, 0.5 mL of Omnipaque injected. An excellent left shoulder arthrogram was obtained. After negative aspiration for heme, 3 mL of a solution containing 1 mL 40 mg per mL, 40 mg total triamcinolone along with 2 mL bupivacaine 0.5% injected slowly. Needle retracted [facility], flushed with 1 mL of 1% lidocaine and removed. Sterile bandage placed over injection site. There were no new motor deficits present in the left upper extremity following procedure. The patient tolerated procedure well, carefully [place] [address] PAIN MANAGEMENT CONSULTATION Name: PRISCA SOLIS Room #: REG [facility]#: [id number] Admission: 04/02/20 Attend Phys: Orlando Crews DO Discharge: Date of : 43 Report #: [id number] stable condition. No apparent complications. After meeting discharge criteria, the patient discharged home. By: [id number] Orlando Crews DO /nt
[2020-04-02 08:06] VITALS: BP 137/70
--- NOTE | 2020-04-02 08:13 | NUR ---
Pain Clinic Assessment: 1. History of Osteoarthritis: NECK History of Rheumatoid Arthritis: Not Applicable 2. Height: 5 ft. 0 in. 152.4 cm. Weight: 131.4 lb. oz. 59.603 kg. Patient's BMI: 25.7 3. Vital Signs: BP: 137/70 Pulse: 88 Resp: 18 Temp: 02 Sat: 96 ECG Mon: 4. Pain Intensity: 0, 10 WITH EPISODE 5. Fall Risk: Dizziness: N Needs help standing or walking: N Fallen in the last 3 months: N Fall risk comments: 6. Patient on Blood Thinner: None 7. History of Hypertension: Y 8. Opioid Therapy greater than 6 weeks: Y Opiate Contract Signed: 9. Risk Assessment Tool Provided: LOW RISK 0 10. Functional Assessment Tool: 11. Recreational Drug Use: Never Drug Type: Tobacco Use: Light Tobacco Smoker Tobacco Type: Amount or Packs/day: How Many Years: Alcohol Use: No Frequency: Quant:
== END | disposition home or self-care (01) ==
LOC: PAIN 06:51
PROVIDERS: ATTEND Anesthesiology Pain Medicine
DX: M25.512 Pain in left shoulder (principal); M19.012 Primary osteoarthritis, left shoulder; M19.011 Primary osteoarthritis, right shoulder; M54.12 Radiculopathy, cervical region; G89.29 Other chronic pain; I10 Essential (primary) hypertension; M19.90 Unspecified osteoarthritis, unspecified site; F17.210 Nicotine dependence, cigarettes, uncomplicated; Z98.890 Other specified postprocedural states; Z79.899 Other long term (current) drug therapy; Z79.891 Long term (current) use of opiate analgesic; Z88.2 Allergy status to sulfonamides; Z88.0 Allergy status to penicillin

== ENCOUNTER → 2020-07-09 | Outpatient (CLI) | payer OTHER ==
[~2020-07-09] VITALS: Ht 152.4 cm; Wt 58.5 kg
[2020-07-09 08:11] VITALS: BP 146/67
--- NOTE | 2020-07-09 08:22 | NUR ---
Pain Clinic Assessment: 1. History of Osteoarthritis: NECK History of Rheumatoid Arthritis: Not Applicable 2. Height: 5 ft. 0 in. 152.4 cm. Weight: 129.0 lb. oz. 58.514 kg. Patient's BMI: 25.2 3. Vital Signs: BP: 146/67 Pulse: 85 Resp: 18 Temp: 02 Sat: 100 ECG Mon: 4. Pain Intensity: 0, 4 WITH EPISODE 5. Fall Risk: Dizziness: N Needs help standing or walking: N Fallen in the last 3 months: N Fall risk comments: 6. Patient on Blood Thinner: None 7. History of Hypertension: Y 8. Opioid Therapy greater than 6 weeks: Y Opiate Contract Signed: 9. Risk Assessment Tool Provided: LOW RISK 0 10. Functional Assessment Tool: 11. Recreational Drug Use: Never Drug Type: Tobacco Use: Light Tobacco Smoker Tobacco Type: Cigarettes Amount or Packs/day: 1 Q 2-3 WEEK How Many Years: Alcohol Use: No Frequency: Quant:
--- NOTE | 2020-07-10 10:41 | HPC ---
[facility] [place] [address] PAIN MANAGEMENT CONSULTATION Name: PRISCA SOLIS Room #: REG [facility].#: [id number] Admission: 07/09/20 Attend Phys: Orlando Crews DO Discharge: Date of : 43 Report #: [id number] THIS REPORT FOR: cc: Yakelin Valles MD, Sequita MD Johnson,Orlando Beauchamp DO ~ DATE OF SERVICE: 07/09/2020 CHIEF COMPLAINT: Left shoulder pain and left neck pain. HISTORY OF PRESENT ILLNESS: As you know, the patient is a very pleasant 75-year-old female, who has returned today in followup visit reporting the previous intra-articular shoulder injection gave 100% improvement in overall pain lasting for nearly 3 months. She sought evaluation through Orthopedics in regards to a possible shoulder surgery. She was advised she is not a candidate at this time and they recommend more conservative treatment. She returns today in followup visit with pain level of 4/10 requesting to undergo next in the series of left intra-articular shoulder injections as she has had a slow and progressive return of symptoms and no inciting injury or trauma. The patient is very pleased with response to the injection, returning today to undergo the next in the series in hopes of building on success of previous intervention. ALLERGIES: SULFA, ERYTHROMYCIN, AND PENICILLIN. CURRENT MEDICATIONS: Diclofenac sodium, Tecfidera, atorvastatin, cyanocobalamin, cholecalciferol, and aspirin. SOCIAL HISTORY: The patient reports she smokes about a pack of tobacco per month. Denies IV or illicit drug use. Denies any chronic alcohol use. She is unaccompanied at today's visit. IMAGING: No new imaging available. PQRS: The patient has known arthritic changes of the cervical spine, bilateral shoulders, bilateral hands and lumbar spine. No rheumatoid arthritis. She is placing pain anywhere from 4/10 depending on activity. She is not a fall risk, has not had a fall in last 3 months, but does utilize a cane for ambulation and balance. She is not on blood thinners, but is treated for hypertension. She is on chronic opioids, has a low opiate addiction potential. Pain impact indicating mild interference of daily activities secondary to pain. PHYSICAL EXAMINATION: VITAL SIGNS: Blood pressure 146/67, pulse 85, respiratory rate 18 and unlabored. The patient is 100% on room air. Height 5 feet tall, weight 129 pounds and BMI calculated at 25.2. GENERAL: Well-developed, well-nourished, well-hydrated, thin, 75[place] [address] PAIN MANAGEMENT CONSULTATION Name: PRISCA SOLIS [id number] Admission: 07/09/20 Attend Phys: Orlando Crews DO Discharge: Date of : 43 Report #: [id number] female appearing stated age, pain is rated today 0-4/10. HEENT: Normocephalic, atraumatic. Pupils are round and reactive. The patient is wearing a mask in compliance with COVID-19 regulations. EXTREMITIES: Show no clubbing, no cyanosis, and no edema. ASSESSMENT: 1. Chronic left shoulder pain. 2. Osteoarthritis of the bilateral shoulders. 3. Chronic cervical radiculopathy. 4. Multiple sclerosis. PLAN: 1. The patient has returned today in followup visit having noted 100% improvement in overall pain with the intra-articular shoulder injection provided at our last visit. She is extremely pleased with response to that injection. She has just recently been experiencing increasing pain with activity with left shoulder. She returns to undergo next in the series of injections. She has been advised risks and benefits of the procedure, states understood and wished to proceed. 2. The patient apparently sought evaluation with Orthopedics in regards to her left shoulder. She did not feel pleased with the evaluation she received at their clinic. She indicates that they had advised her, her problems were related to her neck, even though she received 100% improvement in her symptoms with an intra-articular shoulder injection and only transient improvement with cervical epidural injections thus proving left shoulder is the source of the symptoms the patient is experiencing. 3. The patient returns to our clinic to undergo intra-articular shoulder injection. She is going to look for another opinion in regards to her shoulder concerns. 4. No medication changes made at today's visit. The patient will continue current medical therapy as prior prescribed. 5. We will see the patient back in followup visit on an as needed basis for possible next in the series of intra-articular shoulder injections. PROCEDURE NOTE DESCRIPTION OF PROCEDURE: Left intra-articular shoulder injection under fluoroscopic guidance. After obtaining written consent, the patient was taken back to fluoroscopy suite, placed in supine position. Image intensifier (C-arm) was then brought into position over the left shoulder and AP imaging was obtained. The area was then prepped with chlorhexidine marked with sterile marker. A 27-gauge 1-1/4 inch needle was then used to anesthetize skin and subcutaneous tissue with 2 mL of 1% lidocaine. [address] [address] PAIN MANAGEMENT CONSULTATION Name: PRISCA SOLIS Room #: REG [facility]ino#: [id number] Admission: 07/09/20 Attend Phys: Orlando Crews DO Discharge: Date of : 43 Report #: [id number] A 27-gauge 1-1/4 inch needle was then used to advance into the left shoulder under fluoroscopic guidance. Needle was advanced until reaching the proximal head of the humerus. After reaching the proximal head, needle was then retracted approximately 1 mm and aspiration noted to be negative for heme. After negative aspiration for heme, 3 mL of a solution containing 1 mL 40 mg per mL, 40 mg total triamcinolone along with 2 mL bupivacaine 0.5% injected slowly. Needle retracted [facility], flushed with 1 mL of 1% lidocaine and then removed. Sterile bandage placed over injection site. No new motor deficits present in the upper extremities following procedure. The patient tolerated procedure well, carefully escorted to recovery room in stable condition. No apparent complications. After meeting discharge criteria, the patient discharged home. <ELECTRONICALLY SIGNED> By: Orlando Crews DO 07/10/20 1041 [id number] Orlando Crews DO /nt
== END | disposition home or self-care (01) ==
LOC: PAIN 06:46
PROVIDERS: ATTEND Anesthesiology Pain Medicine
DX: M25.512 Pain in left shoulder (principal); M19.012 Primary osteoarthritis, left shoulder; M19.011 Primary osteoarthritis, right shoulder; M54.12 Radiculopathy, cervical region; G89.29 Other chronic pain; I10 Essential (primary) hypertension; F17.210 Nicotine dependence, cigarettes, uncomplicated; G35 Multiple sclerosis; Z79.899 Other long term (current) drug therapy; Z98.890 Other specified postprocedural states; Z79.891 Long term (current) use of opiate analgesic; Z88.2 Allergy status to sulfonamides; Z88.0 Allergy status to penicillin

== ENCOUNTER → 2020-07-23 | Outpatient (CLI) | payer OTHER ==
[~2020-07-23] VITALS: Ht 152.4 cm; Wt 57.1 kg
[2020-07-23 10:19] VITALS: BP 142/62
--- NOTE | 2020-07-23 10:30 | NUR ---
Pain Clinic Assessment: 1. History of Osteoarthritis: NECK RIGHT KNEE History of Rheumatoid Arthritis: Not Applicable 2. Height: 5 ft. 0 in. 152.4 cm. Weight: 125.8 lb. oz. 57.062 kg. Patient's BMI: 24.6 3. Vital Signs: BP: 142/62 Pulse: 67 Resp: 18 Temp: 02 Sat: 100 ECG Mon: 4. Pain Intensity: 7 5. Fall Risk: Dizziness: N Needs help standing or walking: Y Fallen in the last 3 months: N Fall risk comments: 6. Patient on Blood Thinner: None 7. History of Hypertension: Y 8. Opioid Therapy greater than 6 weeks: Y Opiate Contract Signed: 9. Risk Assessment Tool Provided: LOW RISK 0 10. Functional Assessment Tool: 11. Recreational Drug Use: Never Drug Type: Tobacco Use: Former Smoker Tobacco Type: Amount or Packs/day: How Many Years: Alcohol Use: No Frequency: Quant:
--- NOTE | 2020-07-24 12:09 | HPC ---
[facility] [place] [address] PAIN MANAGEMENT CONSULTATION Name: PRISCA SOLIS Room #: REG [facility]..#: [id number] Admission: 07/23/20 Attend Phys: Orlando Crews DO Discharge: Date of : 43 Report #: [id number] THIS REPORT FOR: cc: Yakelin Valles MD,Orlando Fields MD, DO ~ DATE OF SERVICE: 07/23/2020 REFERRING PHYSICIAN: Yakelin Valles MD CHIEF COMPLAINT: Right knee pain. HISTORY OF PRESENT ILLNESS: As you know, the patient is a very pleasant 75-year-old female, who has returned today in followup visit to undergo right intraarticular knee injection under fluoroscopic guidance. The patient has been receiving intraarticular knee injections with Orthopedics and has noted some improvement in symptoms. She wished to change her care to our services, so that we could address her ongoing symptoms as a consistent treatment course. She returns today to undergo right intraarticular knee injection under fluoroscopic guidance to address pain for which she places pain at 7/10. She denies injury or trauma to the right knee that may have led to symptom development. She has been diagnosed with severe osteoarthritic changes. ALLERGIES: SULFA, ERYTHROMYCIN, AND PENICILLIN. CURRENT MEDICATIONS: Diclofenac sodium, Tecfidera, atorvastatin, cyanocobalamin, cholecalciferol, and aspirin. SOCIAL HISTORY: The patient continues to smoke, reports about a pack of tobacco per month. Denies IV or illicit drug use. Denies any chronic alcohol use. She is unaccompanied today. IMAGING: No new imaging available. PQRS: The patient has known arthritic changes of the cervical spine, bilateral shoulders, bilateral hands, bilateral knees, and lumbar spine. No rheumatoid arthritis. She is placing pain intensity today at level 7/10. She is a fall risk, but has not had a fall in last 3 months. She is utilizing a cane for ambulation and balance. She is not on blood thinners, but is treated for hypertension. She is on chronic opioids and has a low opiate addiction potential. Pain impact in regards to the right knee , mild interference of daily activities secondary to pain. PHYSICAL EXAMINATION: VITAL SIGNS: Blood pressure 142/62, pulse 67, respiratory rate 18 and unlabored. The patient is 100% on room air. Height 5 feet tall, weight 125.[address] [address] PAIN MANAGEMENT CONSULTATION Name: PRISCA SOLIS Room #: REG [facility].Andreia.#: [id number] Admission: 07/23/20 Attend Phys: Orlando Crews DO Discharge: Date of : 44 Report #: [id number] pounds, BMI calculated 24.6. GENERAL: Well-developed, well-nourished, well-hydrated, thin, 75-year-old female appearing stated age, pain is rated today at 7/10. HEENT: Normocephalic, atraumatic. Pupils equal, round and reactive. Speech is fluent. The patient is wearing a mask in compliance with COVID-19 regulations. EXTREMITIES: Show no clubbing, no cyanosis, and no appreciable edema. MUSCULOSKELETAL: Active and passive range of motion of right knee is met with increasing pain. Weightbearing from a standing position exacerbates right knee pain. Ambulation on the right knee is causing intensification of pain. There is mild crepitus noted with active and passive range of motion. ASSESSMENT: 1. Right knee pain. 2. Right knee osteoarthritis. 3. Chronic intractable pain. PLAN: 1. The patient returns today in followup visit requesting to undergo right intraarticular knee injection under fluoroscopic guidance. Recent imaging of the right knee showed progressively worsening osteoarthritic changes of the medial and lateral aspect of the knee itself. She does have some meniscal injury, but this has been treated conservatively. She is not looking towards undergoing surgical options. She returns today in followup visit to undergo right intraarticular knee injection under fluoroscopic guidance. The patient has been advised risks and benefits of a right intraarticular knee injection. These risks include but are not necessarily limited to bleeding, bruising, infection, worsening pain, no relief of pain, also risk of temporary or permanent muscle weakness, temporary or permanent nerve damage, possible joint pain, joint destruction, and . The patient states she understood and wished to proceed. 2. No medication changes made at today's visit. The patient will continue current medical therapy as prior prescribed. 3. We will see the patient back in followup visit on an as-needed basis for further interventional treatments or to address medication management. PROCEDURE NOTE DESCRIPTION OF PROCEDURE: Right intraarticular knee injection under fluoroscopic guidance. After obtaining written consent, the patient was taken back to fluoroscopy suite, placed in a supine position. Image intensifier (C-arm) was brought into position over the right knee, and AP imaging was obtained. The area of the lateral knee was prepped and draped in aseptic fashion and marked with a sterile marker. A 27-gauge 1-1/4 inch needle was then used to anesthetize skin and [address] [address] PAIN MANAGEMENT CONSULTATION Name: PRISCA SOLIS Room #: REG [facility]#: [id number] Admission: 07/23/20 Attend Phys: Orlando Crews DO Discharge: Date of : 43 Report #: [id number] subcutaneous tissue with 2 mL of 1% lidocaine. A 25-gauge 2-inch needle was then advanced under fluoroscopic guidance into the right knee under direct fluoroscopic imaging. After entering the knee, there was negative aspiration for heme. After negative aspiration for heme, 0.2 mL of Omnipaque injected demonstrating an excellent right knee arthrogram. After negative aspiration for heme, 3 mL of solution containing 1 mL 40 mg per mL, 40 mg total triamcinolone along with 2 mL of bupivacaine 0.5% was injected slowly. Needle retracted detention, flushed with 1 mL of 1% lidocaine and removed. Sterile bandage placed over injection site. There were no new motor deficits present in the right lower extremity following procedure. The patient tolerated procedure well, carefully escorted to recovery room in stable condition. No apparent complications. After meeting discharge criteria, the patient discharged home. <ELECTRONICALLY SIGNED> By: Orlando Crews DO 07/24/20 1209 1424 1559 Orlando Crews DO /nt
== END | disposition home or self-care (01) ==
LOC: PAIN 06:53
PROVIDERS: ATTEND Anesthesiology Pain Medicine
DX: M25.561 Pain in right knee (principal); M17.11 Unilateral primary osteoarthritis, right knee; G89.29 Other chronic pain; I10 Essential (primary) hypertension; F17.210 Nicotine dependence, cigarettes, uncomplicated; M19.90 Unspecified osteoarthritis, unspecified site; Z98.890 Other specified postprocedural states; Z79.899 Other long term (current) drug therapy; Z79.891 Long term (current) use of opiate analgesic; Z88.2 Allergy status to sulfonamides; Z88.0 Allergy status to penicillin

== ENCOUNTER → 2020-08-27 | Outpatient (CLI) | payer OTHER ==
[~2020-08-27] VITALS: Ht 152.4 cm; Wt 56.2 kg
[~2020-08-27] MED LIST changes: +NORCO5 PO
[2020-08-27 10:22] VITALS: BP 150/62
--- NOTE | 2020-08-27 10:34 | NUR ---
Pain Clinic Assessment: 1. History of Osteoarthritis: NECK RIGHT KNEE LEFT SHOULDER History of Rheumatoid Arthritis: Not Applicable 2. Height: 5 ft. 0 in. 152.4 cm. Weight: 124.0 lb. oz. 56.246 kg. Patient's BMI: 24.2 3. Vital Signs: BP: 150/62 Pulse: 62 Resp: 16 Temp: 02 Sat: 100 ECG Mon: 4. Pain Intensity: 5 TODAY 9 AVG 5. Fall Risk: Dizziness: N Needs help standing or walking: Y Fallen in the last 3 months: N Fall risk comments: 6. Patient on Blood Thinner: None 7. History of Hypertension: Y 8. Opioid Therapy greater than 6 weeks: Y Opiate Contract Signed: 9. Risk Assessment Tool Provided: LOW RISK 0 10. Functional Assessment Tool: 11. Recreational Drug Use: Never Drug Type: Tobacco Use: Former Smoker Tobacco Type: Cigarettes Amount or Packs/day: How Many Years: Alcohol Use: No Frequency: Quant:
--- NOTE | 2020-08-28 11:40 | HPC ---
[facility] [place] [address] PAIN MANAGEMENT CONSULTATION Name: PRISCA SOLIS Room #: REG [facility] M..#: [id number] Admission: 08/27/20 Attend Phys: Orlando Crews DO Discharge: Date of : 43 Report #: [id number] THIS REPORT FOR: cc: Yakelin Valles MD, Sequita MD Johnson,Orlando Beauchamp DO ~ DATE OF SERVICE: 08/27/2020 CHIEF COMPLAINT: Left shoulder pain and left neck pain. HISTORY OF PRESENT ILLNESS: As you know, the patient is a very pleasant 75-year-old female, who has returned today in followup visit with recurrence of left neck and left shoulder pain. As you are aware, the patient has a very arthritic left shoulder and has been advised by Orthopedics that surgical options will be recommended. We have been treating her conservatively with medication management and intermittent intra-articular shoulder injections with good benefit. She returns today in followup visit stating that she is to undergo her COVID-19 injection on 09/05, which would preclude the patient from undergoing any type of steroid exposure for 2 weeks prior to these injections in 2 weeks after the injections based on CDC recommendations. She returns today to discuss other treatment options to address her 5-9/10 pain. She is denying new injury or trauma that may have led to symptom recurrence. She is doing very well from the right intra-articular knee injection provided at our last visit with near 100% improvement in symptoms. She continues to experience left shoulder pain, for which she returns today. ALLERGIES: SULFA, ERYTHROMYCIN, AND PENICILLIN. CURRENT MEDICATIONS: Diclofenac sodium, Tecfidera, atorvastatin, cyanocobalamin, cholecalciferol, and aspirin. SOCIAL HISTORY: The patient continues to smoke a full pack of tobacco per month. She denies IV or illicit drug use. Denies any chronic alcohol use. She is unaccompanied at today's visit. IMAGING: No new imaging available. PQRS: The patient has known arthritic changes of the cervical spine, bilateral shoulders, bilateral hands, bilateral knees, and lumbar spine. No rheumatoid arthritis. She is placing current pain intensity anywhere from 5 to 9/10. She is a fall risk, but has not had a fall in last 3 months. She is utilizing a cane for ambulation and balance. She is not on blood thinners, but is treated for hypertension. She is on chronic opioids, has a low opiate addiction potential based on assessment tool. Pain impact . Mild interference of daily activities secondary to pain. [facility] [address] [place] [address] PAIN MANAGEMENT CONSULTATION Name: PRISCA SOLIS Room #: REG [facility]#: [id number] Admission: 08/27/20 Attend Phys: Orlando Crews DO Discharge: Date of : 43 Report #: [id number] PHYSICAL EXAMINATION: VITAL SIGNS: Blood pressure 150/62, pulse 62, respiratory rate 16 and unlabored. The patient is 100% on room air. Height 5 feet tall, weight 124 pounds, and BMI calculated 24.2. GENERAL: Well-developed, well-nourished, well-hydrated 75-year-old female appearing stated age. Pain is rated today 5-9/10 involving the left shoulder and neck. HEENT: Normocephalic, atraumatic. Pupils equal, round, and responsive. The patient is wearing a mask in compliance with COVID-19 regulations. EXTREMITIES: Show no clubbing, no cyanosis. No appreciable edema. MUSCULOSKELETAL: Upper extremity strength is equal and symmetrical, though giveaway strength is noted with abduction and adduction of the left shoulder due to pain. Apley's test is positive. Any type of provocative testing, both in active and passive range of motion. ASSESSMENT: 1. Chronic left shoulder pain. 2. Osteoarthritis of the left shoulder. 3. Rotator cuff injury of the left shoulder. 4. Chronic intractable pain. PLAN: 1. The patient returns today in followup visit to discuss treatment options for ongoing left shoulder and left neck pain. The patient has done very well with intra-articular shoulder injections, but unfortunately cannot undergo the next in the series, as she has plans to undergo COVID-19 injection within 1 week. CDC recommends a 2-week timeframe prior to injections in 2 weeks' timeframe after injections to develop and maintain an immune response to COVID-19 inoculations. We have discussed this with the patient today. We have no problems having the patient to undergo the left shoulder injection today, but she will have to delay her COVID-19 injections for at least 2 weeks. She is willing to delay our injection in favor of the COVID-19 injections at this time. We will make ourselves available 2 weeks after the second in the series of COVID injections for the patient to undergo a left intra-articular shoulder injection. 2. The patient will be referred to see Dr. De La Paz with [facility] in [place]. The patient is to be evaluated for left shoulder surgery. The patient has been advised by another surgeon that she is a surgical candidate, but did not feel that she was receiving good treatment and wished a second opinion. We will send the patient to Dr. De La Paz for evaluation. The patient was given a referral and directions to Dr. De La Paz's office. We reviewed the fact that opiate medications are being used to provide analgesia adequate to support activities of daily living, not attempting to achieve a specific pain score on the 0-10 Visual Analog Scale. The current opiate medications are providing sufficient analgesia to allow the patient to [facility] [address] [place] [address] PAIN MANAGEMENT CONSULTATION Name: PRISCA SOLIS Room #: REG [facility].#: [id number] Admission: 08/27/20 Attend Phys: Orlando Crews DO Discharge: Date of : 43 Report #: [id number] participate in activities of daily living. The patient is not exhibiting any aberrant behavior suggestive of drug diversion. The patient is not having any adverse reactions to medications. The patient is not suffering from daytime somnolence or mental acuity changes. The patient is managing opiate-induced constipation with appropriate [id number]-llosuth agents and dietary considerations. The patient was counseled on concern for caution with operating a motor vehicle while using opiate medications. A physical exam was performed and the patient's functional status was evaluated. All patients with back pain were advised against the bed rest greater than 4 days and were advised to return to normal activities. Pain score assessment was noted and the treatment plan was reviewed with the patient. All current medications, both prescribed and OTC were reviewed and reconciled on the electronic medical record. Tobacco screening was accomplished and smoking cessation was advised when indicated. BMI was noted and diet/exercise modification was recommended for all patients following outside normal parameters. I reviewed with the patient today their responsibilities to safeguard prescription medications, reviewed their responsibility to utilize medications only as prescribed by the physician. They are to seek and receive pain medications only from 1 physician group ( [facility]). They are to use 1 pharmacy and keep the clinic informed if they change pharmacies. Their responsibilities include making followup visits in a timely fashion and to avoid abrupt discontinuation of medication usage. Their responsibilities further include bringing their medications (bottles from the pharmacy with residual pills) to the visit for possible confirmation of pill counts and the patient understands it is their responsibility to submit to random drug screens to ensure both that the medications prescribed are present, and that no other controlled substances are present. All prescriptions provided today were generated electronically. 3. The patient was provided a prescription of hydrocodone 5/325 one tablet p.o. q.12 hours p.r.n. for pain. I have given the patient #60 tablets to release today. The patient was advised to take the medication as directed, not to rely on the medication prophylactically. 4. I plan to see the patient back in followup visit once she has completed the COVID-19 injections and has had a 2-week timeframe from the final injection to undergo next in the series of intra-articular shoulder injections. We will keep you apprised of her response. <ELECTRONICALLY SIGNED> By: Orlando Crews DO 08/28/20 1140 1230 1517 Orlando Crews DO /nt
== END | disposition home or self-care (01) ==
LOC: PAIN 06:59
PROVIDERS: ATTEND Anesthesiology Pain Medicine
DX: M25.512 Pain in left shoulder (principal); Z53.8 Procedure and treatment not carried out for other reasons; M19.012 Primary osteoarthritis, left shoulder; G89.29 Other chronic pain; M54.2 Cervicalgia; I10 Essential (primary) hypertension; M19.90 Unspecified osteoarthritis, unspecified site; Z98.890 Other specified postprocedural states; Z79.899 Other long term (current) drug therapy; Z88.2 Allergy status to sulfonamides; Z88.0 Allergy status to penicillin

== ENCOUNTER → 2020-10-29 | Outpatient (CLI) | payer OTHER ==
[~2020-10-29] VITALS: Ht 152.4 cm; Wt 54.3 kg
[2020-10-29 09:19] VITALS: BP 140/66
--- NOTE | 2020-10-29 09:30 | NUR ---
Pain Clinic Assessment: 1. History of Osteoarthritis: NECK RIGHT KNEE LEFT SHOULDER History of Rheumatoid Arthritis: Not Applicable 2. Height: 5 ft. 0 in. 152.4 cm. Weight: 119.8 lb. oz. 54.341 kg. Patient's BMI: 23.4 3. Vital Signs: BP: 140/66 Pulse: 74 Resp: 16 Temp: 02 Sat: 97 ECG Mon: 4. Pain Intensity: 10 5. Fall Risk: Dizziness: N Needs help standing or walking: Y Fallen in the last 3 months: N Fall risk comments: 6. Patient on Blood Thinner: None 7. History of Hypertension: Y 8. Opioid Therapy greater than 6 weeks: Y Opiate Contract Signed: 9. Risk Assessment Tool Provided: LOW RISK 0 10. Functional Assessment Tool: 11. Recreational Drug Use: Never Drug Type: Tobacco Use: Former Smoker Tobacco Type: Amount or Packs/day: How Many Years: Alcohol Use: No Frequency: Quant:
--- NOTE | 2020-11-04 10:03 | HPC ---
[facility] [place] [address] PAIN MANAGEMENT CONSULTATION Name: PRISCA SOLIS Room #: REG [facility].#: [id number] Admission: 10/29/20 Attend Phys: Orlando Crews DO Discharge: Date of : 43 Report #: [id number] THIS REPORT FOR: cc: Yakelin Valles MD, Sequita MD Johnson,Orlando Beauchamp DO ~ DATE OF SERVICE: 10/29/2020 CHIEF COMPLAINT: Right knee pain and chronic left shoulder pain. HISTORY OF PRESENT ILLNESS: As you know, the patient is a very pleasant 75-year-old female returning in followup visit with continued right knee pain. The patient has sought orthopedic consultation. They have advised total knee arthroplasty would be necessary. The patient has undergone intraarticular knee injections with good benefit, the most recent knee injection was in 07/2020 with good benefit, lasting almost 3 months. She returns today in followup visit with recurrence of right knee pain. She also wishes to discuss ongoing left shoulder pain. She did have an appointment with Orthopedics to discuss surgical options for the shoulder, but missed the appointment. She returns today in followup visit to undergo a right intra-articular knee injection under fluoroscopic guidance. ALLERGIES: SULFA, ERYTHROMYCIN, AND PENICILLIN. CURRENT MEDICATIONS: See chart. SOCIAL HISTORY: She continues to smoke. Denies IV or illicit drug use. Denies any chronic alcohol use. She is unaccompanied at today's visit. IMAGING: No new imaging available. PQRS: The patient has known arthritic changes of the cervical spine, bilateral shoulders, bilateral hands, bilateral knees and lumbar spine. No rheumatoid arthritis. She is placing her current pain score 10/10. She is a fall risk, but has not had a fall in last 3 months. She is not on blood thinners, but is treated for hypertension. She is on chronic opioids, has a low opioid addiction potential based on assessment tool. Pain impact is 13/70, mild interference of daily activities secondary to pain. PHYSICAL EXAMINATION: VITAL SIGNS: Blood pressure 140/66, pulse 74, respiratory rate 16 and unlabored. The patient is 97% on room air. Height 5 feet tall, weight 119.8 pounds, BMI calculated 23.4. GENERAL: Well-developed, well-nourished, well-hydrated, thin, 75-year-old female appearing her stated age, placing current pain score up to 10/10 involving the right knee. She is wearing a mask in compliance with COVID-19 [place] [address] PAIN MANAGEMENT CONSULTATION Name: PRISCA SOLIS Room #: REG [facility].#: [id number] Admission: 10/29/20 Attend Phys: Orlando Crews DO Discharge: Date of : 43 Report #: [id number] regulations. EXTREMITIES: Show no clubbing, no cyanosis, no edema. MUSCULOSKELETAL: Weightbearing from a seated position to a standing position causes intensification of right knee pain. Gait is antalgic favoring right lower extremity overlap due to pain. Active and passive range of motion of right knee is met with increased pain. There is mild crepitus. Ligamentous structures appear intact with anterior and posterior drawer testing. ASSESSMENT: 1. Right knee pain. 2. Right knee osteoarthritis. 3. Chronic intractable pain. PLAN: 1. The patient returns today in followup visit with right knee pain and chronic left shoulder pain. She is most concerned about her right knee today. States she cannot ambulate or go about her activities of daily living due to pain. She was very pleased with response to the intra-articular knee injection provided in July, which gave almost 3 months of 90 or greater percent improvement in symptoms. She returns today to undergo right knee injection under fluoroscopic guidance. The patient has been advised risks and benefits of right intraarticular knee injections. These risks include, but are not necessarily limited to bleeding, bruising, infection, worsening pain, no relief of pain, also risk of temporary or permanent muscle weakness, temporary or permanent nerve damage, possible joint destruction and . The patient states understood and wished to proceed. 2. The patient is complaining of continued left shoulder pain. She reports the injection provided in June was an excellent injection providing great benefit, but unfortunately, her symptoms have recurred. She is going to return in 2 weeks to undergo left intra-articular shoulder injection. PROCEDURE NOTE: DESCRIPTION OF PROCEDURE: Right intraarticular knee injection under fluoroscopic guidance. After obtaining written consent, the patient was taken back to fluoroscopy suite, placed in supine position. Image intensifier (C-arm) was brought into position over the right knee and AP imaging was obtained. The area of the lateral knee was prepped and draped in aseptic fashion and marked with sterile marker. A 27-gauge 1-1/4 inch needle was then used to anesthetize skin and subcutaneous tissue with 2 mL of 1% lidocaine. A 25-gauge 2-inch needle was then advanced under fluoroscopic guidance into the [facility] [address] [place] [address] PAIN MANAGEMENT CONSULTATION Name: PRISCA SOLIS [id number] Admission: 10/29/20 Attend Phys: Orlando Crews DO Discharge: Date of : 43 Report #: [id number] right knee under direct fluoroscopic imaging. After entering the knee and aspiration negative for heme, 0.2 mL of Omnipaque injected demonstrating excellent right knee arthrogram. After negative aspiration for heme, 3.5 mL of a solution containing 1 mL 40 mg per mL, 40 mg total triamcinolone and 2.5 mL bupivacaine 0.5% was injected slowly. Needle retracted intermediate, flushed with 1 mL of 1% lidocaine and removed. Sterile bandage placed over injection site. There were no new motor deficits present in the lower extremities following procedure. The patient tolerated the procedure well, carefully escorted to recovery room in stable condition. No apparent complications. After meeting discharge criteria, the patient discharged home. <ELECTRONICALLY SIGNED> By: Orlando Crews DO 11/04/20 1003 1031 1225 Orlando Crews DO /nt
== END | disposition home or self-care (01) ==
LOC: PAIN 09-10 12:49
PROVIDERS: ATTEND Anesthesiology Pain Medicine
DX: M25.561 Pain in right knee (principal); M17.11 Unilateral primary osteoarthritis, right knee; G89.29 Other chronic pain; I10 Essential (primary) hypertension; M19.90 Unspecified osteoarthritis, unspecified site; Z98.890 Other specified postprocedural states; Z79.899 Other long term (current) drug therapy; Z87.891 Personal history of nicotine dependence; Z88.0 Allergy status to penicillin; Z88.2 Allergy status to sulfonamides; Z79.891 Long term (current) use of opiate analgesic

== ENCOUNTER → 2020-11-12 | Outpatient (CLI) | payer OTHER ==
[~2020-11-12] VITALS: Ht 152.4 cm; Wt 52.6 kg
--- NOTE | ~2020-11-12 | HPC ---
[facility] [place] [address] PAIN MANAGEMENT CONSULTATION Name: PRISCA SOLIS Room #: REG [facility].#: [id number] Admission: 11/12/20 Attend Phys: Orlando Crews DO Discharge: Date of : 43 Report #: [id number] THIS REPORT FOR: cc: Yakelin Valles MD,Orlando Fields MD, DO ~ DOC #: [id number] cc: MD Orlando Davis, DATE OF SERVICE: 11/12/2020 CHIEF COMPLAINT: Left shoulder pain, right knee pain. HISTORY OF PRESENT ILLNESS: As you know, the patient is a very pleasant 75-year-old female returning in followup visit to undergo left intraarticular shoulder injection. The patient states no significant improvement with the right intraarticular knee injection provided at the last visit. She had initial improvement of about 70-80%, but the symptoms recurred quite quickly. She has an appointment with orthopedic surgery on the of this month to discuss total knee arthroplasty and to address her left shoulder. She returns today in followup visit to undergo intraarticular shoulder injection under fluoroscopic guidance to address pain for which she places pain today at 7/10, chronic and aching in sensation, exacerbated with activities. ALLERGIES: SULFA, ERYTHROMYCIN, PENICILLIN. CURRENT MEDICATIONS: See chart. SOCIAL HISTORY: The patient reports she continues to smoke half pack tobacco per day, has done so for years. Denies IV or illicit drug use. Denies any chronic alcohol use. She is retired, unaccompanied today. IMAGING: No new imaging available. PQRS: The patient has known arthritic changes of the cervical spine, bilateral shoulders left greater than right, bilateral hands, bilateral knees and lumbar spine. No rheumatoid arthritis. She is placing pain intensity today 7/10. She is not a fall risk, has not had a fall in last 3 months, but does use a cane for ambulation and balance. She is not on blood thinners for hypertension and is on chronic opioids. She has a low opioid addiction potential based on our assessment tool. Pain impact is 13-70, mild interference of daily activities secondary to pain. PHYSICAL EXAMINATION: VITAL SIGNS: Blood pressure 150/56, pulse 70, respiratory rate 16 unlabored. The patient is 97% on room air. Height 5 feet tall, weight 116 pounds, BMI [address] [address] PAIN MANAGEMENT CONSULTATION Name: PRISCA SOLIS Room #: REG [facility].Andreia.#: [id number] Admission: 11/12/20 Attend Phys: Orlando Crews DO Discharge: Date of : 43 Report #: [id number] calculated 22.7. GENERAL: Well-developed, well-nourished, well-hydrated, thin 75-year-old female, appearing her stated age. She is in moderate distress secondary to pain placing current pain score 7/10. HEENT: Normocephalic, atraumatic. Pupils equal, round and responsive. EXTREMITIES: Show no clubbing, no cyanosis, no edema. MUSCULOSKELETAL: Active and passive range of motion of the left shoulder is met with increasing pain. There is noted crepitus with movement. Spurling's test is negative. Active and passive range of motion right knee is met with severe pain as is standing from a seated position. ASSESSMENT: 1. Chronic left shoulder pain. 2. Osteoarthritis of the left shoulder. 3. Right knee pain. 4. Right knee osteoarthritis. 5. Chronic intractable pain. PLAN: 1. The patient returns today in followup visit requesting left intraarticular shoulder injection under fluoroscopic guidance. The patient has been advised the risks and benefits of this procedure. She states she understood and wished to proceed. The patient has noted excellent benefit with previous intraarticular shoulder injections, hopeful to see similar improvement today. She has been advised the risks and benefits of the procedure, states she understood and wished to proceed. 2. The patient did have a long discussion today about orthopedic consultation. She is initially being seen for her left shoulder, but states her right knee is the most debilitating portion of her pain. Currently, she is unable to ambulate, go back daily activities. She is going to discuss with them as well, looking towards a right total knee arthroplasty. She has been advised that she needed a total knee years ago, but has put this off as she was seeing good benefit with intraarticular injections, the fact that she is no longer seeing those effects would indicate that she has had a progression of her symptoms and likely needs more aggressive treatment. She will be discussing this with orthopedics. 3. The patient was provided a prescription of [place] 5/325 one tab p.o. q.12 hours p.r.n. for pain. Again, the patient #60 tablets with no refills. The patient was advised to take the medication as directed, not to take the medication prophylactically. 4. We will see the patient back in followup visit on an as needed basis to address any recurrent joint pain. We are hopeful the patient will see good and prolong benefit with today's left intraarticular shoulder injection. PROCEDURE NOTE [address] [address] PAIN MANAGEMENT CONSULTATION Name: PRISCA SOLIS Room #: REG [facility]#: [id number] Admission: 11/12/20 Attend Phys: Orlando Crews DO Discharge: Date of : 43 Report #: [id number] DESCRIPTION OF PROCEDURE: Left intraarticular shoulder injection under fluoroscopic guidance. After obtaining written consent, the patient was taken back to fluoroscopy suite, placed in a supine position. The image intensifier was then brought into position over the left shoulder and AP imaging was obtained. The area was prepped with chlorhexidine and marked with sterile marker. A 27-gauge 1-1/4-inch needle was then used to anesthetize skin and subcutaneous tissue with 2 mL of 1% preservative-free lidocaine. A 27-gauge 1-1/4 inch needle was then advanced into the left shoulder joint under direct fluoroscopic imaging. Needle was advanced until reaching the proximal head of the left humerus. The needle was then retracted 1 mm and aspiration noted to be negative for heme. After negative aspiration for heme, 0.5 mL of Omnipaque injected demonstrating an excellent left shoulder arthrogram. After negative aspiration for heme, 3 mL of a solution containing 1 mL 40 mg per mL, 40 mg total triamcinolone along with 2 mL of bupivacaine 0.5% injected slowly. Needle retracted intermediate, flushed with 1 mL of 1% lidocaine and removed. Sterile bandage placed over injection site. No new motor deficits present in the upper extremities following procedure. The patient tolerated the procedure well, carefully escorted to recovery room in stable condition. No apparent complications. After meeting discharge criteria, the patient discharged home. DO LOC Moe/MARIANO/LUCIANO By: [id number] Orlando Crews DO /nt
[2020-11-12 08:08] VITALS: BP 150/56
--- NOTE | 2020-11-12 08:14 | NUR ---
Pain Clinic Assessment: 1. History of Osteoarthritis: NECK RIGHT KNEE LEFT SHOULDER History of Rheumatoid Arthritis: Not Applicable 2. Height: 5 ft. 0 in. 152.4 cm. Weight: 116.0 lb. oz. 52.617 kg. Patient's BMI: 22.7 3. Vital Signs: BP: 150/56 Pulse: 70 Resp: 16 Temp: 02 Sat: 97 ECG Mon: 4. Pain Intensity: 7 5. Fall Risk: Dizziness: N Needs help standing or walking: N Fallen in the last 3 months: N Fall risk comments: 6. Patient on Blood Thinner: None 7. History of Hypertension: Y 8. Opioid Therapy greater than 6 weeks: Y Opiate Contract Signed: 9. Risk Assessment Tool Provided: LOW RISK 0 10. Functional Assessment Tool: 11. Recreational Drug Use: Never Drug Type: Tobacco Use: Former Smoker Tobacco Type: Amount or Packs/day: How Many Years: Alcohol Use: No Frequency: Quant:
== END | disposition home or self-care (01) ==
LOC: PAIN 07:17
PROVIDERS: ATTEND Anesthesiology Pain Medicine
DX: M25.512 Pain in left shoulder (principal); M19.012 Primary osteoarthritis, left shoulder; M25.561 Pain in right knee; M17.11 Unilateral primary osteoarthritis, right knee; G89.29 Other chronic pain; I10 Essential (primary) hypertension; M19.90 Unspecified osteoarthritis, unspecified site; F17.210 Nicotine dependence, cigarettes, uncomplicated; Z98.890 Other specified postprocedural states; Z79.899 Other long term (current) drug therapy; Z88.8 Allergy status to other drugs, medicaments and biological substances; Z88.2 Allergy status to sulfonamides

== ENCOUNTER → 2021-02-26 | Outpatient (CLI) | payer OTHER ==
[~2021-02-26] VITALS: Ht 152.4 cm; Wt 47.2 kg
--- NOTE | ~2021-02-26 | HPC ---
[facility] [place] [address] PAIN MANAGEMENT CONSULTATION Name: PRISCA SOLIS Room #: REG [facility]..#: [id number] Admission: 02/26/21 Attend Phys: Orlando Crews DO Discharge: Date of : 43 Report #: [id number] THIS REPORT FOR: cc: Yakelin Valles MD,Yakelin Crews,Orlando Beauchamp DO ~ cc: Yakelin Valles MD DATE OF SERVICE: 02/26/2021 REFERRING PHYSICIAN: Dr. Yakelin Valles. CHIEF COMPLAINT: Left shoulder pain, continued right knee pain, status post total knee arthroplasty. HISTORY OF PRESENT ILLNESS: As you know, the patient is a very pleasant 76-year-old female returning in followup visit to undergo left intra-articular shoulder injection under fluoroscopic guidance to address recurrent left shoulder pain. She reports good efficacy with the previous intra-articular shoulder injection reporting up to 70% improvement in overall pain until just recently where her shoulder pain reoccurred. She denies injury or trauma. She continues to experience right knee pain status post total knee arthroplasty, which was performed in December. She has just completed home therapy and is starting formalized outpatient physical therapy tomorrow. She has returned today requesting a refill of hydrocodone for her shoulder pain and right knee pain and to undergo an intraarticular shoulder injection to address shoulder pain. ALLERGIES: SULFA, ERYTHROMYCIN, PENICILLIN. CURRENT MEDICATIONS: See chart. SOCIAL HISTORY: The patient continues to smoke half pack tobacco per day, has done so for years. Denies IV or illicit drug use. Denies any chronic alcohol use. She is retired. IMAGING: No new imaging available. PQRS: The patient has known arthritic changes of the cervical spine; bilateral shoulders, left greater than right; bilateral hands, bilateral knees and lumbar spine. No rheumatoid arthritis. She is placing pain intensity today at around 7/10. She is a fall risk and has had a fall in last 3 months due to right knee pain. She is not on blood thinners, but is treated for hypertension. She is on chronic opioids, has a low opioid addiction potential. Pain impact is a , mild interference of daily activities secondary to pain. PHYSICAL EXAMINATION: [facility] [address] [place] [address] PAIN MANAGEMENT CONSULTATION Name: PRISCA SOLIS Room #: REG [facility]#: [id number] Admission: 02/26/21 Attend Phys: Orlando Crews DO Discharge: Date of : 43 Report #: [id number] VITAL SIGNS: Blood pressure 108/50, pulse 76, respiratory rate 14 and unlabored. The patient 98% on room air. Height 5 feet tall, weight 104 pounds, BMI calculated 20.3. GENERAL: Well-developed, well-nourished, well-hydrated 76-year-old female appearing stated age, pain is rated today 7/10. HEENT: Normocephalic and atraumatic. Pupils are equal, round and responsive. EXTREMITIES: Show no clubbing, no cyanosis. No appreciable edema. MUSCULOSKELETAL: Active and passive range of motion. Left shoulder is met with increase in pain. Pain is elicited with light pressure on the arm when it is in the abducted position. The patient has difficulty with propagating testing of the left shoulder consistent with rotator cuff injury and osteoarthritic changes. The patient also has a well-healed surgical scar over the right knee. Active and passive range of motion is limited by pain, but appears improved from her previous evaluation. ASSESSMENT: 1. Chronic left shoulder pain. 2. Osteoarthritis, left shoulder. 3. Chronic right knee pain, status post total knee arthroplasty. PLAN: 1. The patient returns today in followup visit requesting to undergo left intra-articular shoulder injection under fluoroscopic guidance to address recurrent left shoulder pain. The patient reported good efficacy with the previous shoulder injection, but unfortunately symptoms reoccurred. She denies injury or trauma. She has requested an intraarticular shoulder injection provided today. She has been advised risks and benefits of the procedure, states understood and wished to proceed. 2. The patient has requested we provide her a refill of her [place] 5/325 for pain control. She finds this medication beneficial and this is denying side effects. She is requesting this refill to address predominantly left shoulder pain, but also her ongoing right knee pain. I did advise the patient had long-term opioid medication would not be recommended that she will begin to see improvement in her knee pain as she begins physical therapy. She is agreeable with receiving refill today with the understanding long-term treatment cannot be based on just opioid medications. The patient was provided refill prescription of [place] 5/325 one tablet every 12 hours p.r.n. pain. Again, #60 tablets, no refills. Prescription was sent via [facility] local pharmacy. We reviewed the fact that opiate medications are being used to provide analgesia adequate to support activities of daily living, not attempting to achieve a specific pain score on the 0-10 Visual Analog Scale. The current opiate medications are providing sufficient analgesia to allow the patient to participate in activities of daily living. The patient is not exhibiting any aberrant behavior suggestive of drug diversion. The patient is not having any [address] [address] PAIN MANAGEMENT CONSULTATION Name: PRISCA SOLIS Room #: REG [facility]#: [id number] Admission: 02/26/21 Attend Phys: Orlando Crews DO Discharge: Date of : 43 Report #: [id number] adverse reactions to medications. The patient is not suffering from daytime somnolence or mental acuity changes. The patient is managing opiate-induced constipation with appropriate [id number] agents and dietary considerations. The patient was counseled on concern for caution with operating a motor vehicle while using opiate medications A physical exam was performed and the patient's functional status was evaluated. All patients with back pain were advised against the bed rest greater than 4 days and were advised to return to normal activities. Pain score assessment was noted and the treatment plan was reviewed with the patient. All current medications, both prescribed and OTC were reviewed and reconciled on the electronic medical record. Tobacco screening was accomplished and smoking cessation was advised when indicated. BMI was noted and diet/exercise modification was recommended for all patients following outside normal parameters I reviewed with the patient today their responsibilities to safeguard prescription medications, reviewed their responsibility to utilize medications only as prescribed by the physician. They are to seek and receive pain medications only from 1 physician group ([facility]). They are to use 1 pharmacy and keep the clinic informed if they change pharmacies. Their responsibilities include making followup visits in a timely fashion and to avoid abrupt discontinuation of medication usage. Their responsibilities further include bringing their medications (bottles from the pharmacy with residual pills) to the visit for possible confirmation of pill counts and the patient understands it is their responsibility to submit to random drug screens to ensure both that the medications prescribed are present, and that no other controlled substances are present. All prescriptions provided today were generated electronically. 3. We will see the patient back in followup visit on an as needed basis for the next in the series of left intra-articular shoulder injections. We wish her well and we hope that recovery from her total knee arthroplasty is rapid. DESCRIPTION OF PROCEDURE: Left intraarticular shoulder injection under fluoroscopic guidance. After obtaining written consent, the patient was taken back to fluoroscopy suite, placed in supine position. Image intensifier was then brought into position over the left shoulder and AP imaging was obtained. The area over the left shoulder was prepped and draped in aseptic fashion with chlorhexidine and marked with sterile marker. A 27-gauge 1-1/4 inch needle was then used to anesthetize skin and subcutaneous tissue with 2 mL of 1% preservative-free lidocaine. A 25-gauge, 1-1/4 inch needle was then advanced towards the left shoulder joint [address] [address] PAIN MANAGEMENT CONSULTATION Name: PRISCA SOLIS Room #: REG CLI [facility]#: [id number] Admission: 02/26/21 Attend Phys: Orlando Crews DO Discharge: Date of : 43 Report #: [id number] under fluoroscopic imaging. Needle was advanced until reaching the proximal head of the left humerus. Needle was then retracted approximately 1 mm and aspiration noted to be negative for heme. After negative aspiration for heme, 0.25 mL of Omnipaque injected demonstrating an excellent left shoulder arthrogram. After negative aspiration for heme, 3 mL of solution containing 1 mL 40 mg per mL, 40 mg total triamcinolone along with 2 mL bupivacaine 0.5% injected slowly. Needle retracted intermediate flushed with 1 mL of 1% preservative-free lidocaine and removed. Sterile bandage placed over injection site. No new motor deficits present in the upper extremities following procedure. The patient tolerated the procedure well, carefully escorted to recovery room in stable condition. No apparent complications. After meeting discharge criteria, the patient discharged home. By: [id number] Orlando Crews DO /nt
[2021-02-26 08:23] VITALS: BP 108/50
--- NOTE | 2021-02-26 08:38 | NUR ---
Pain Clinic Assessment: 1. History of Osteoarthritis: NECK RIGHT KNEE LEFT SHOULDER History of Rheumatoid Arthritis: Not Applicable 2. Height: 5 ft. 0 in. 152.4 cm. Weight: 104.0 lb. oz. 47.174 kg. Patient's BMI: 20.3 3. Vital Signs: BP: 108/50 Pulse: 76 Resp: 14 Temp: 02 Sat: 98 ECG Mon: 4. Pain Intensity: 7 5. Fall Risk: Dizziness: N Needs help standing or walking: Y Fallen in the last 3 months: Y Fall risk comments: 6. Patient on Blood Thinner: None 7. History of Hypertension: Y 8. Opioid Therapy greater than 6 weeks: Y Opiate Contract Signed: 9. Risk Assessment Tool Provided: LOW RISK 0 10. Functional Assessment Tool: 11. Recreational Drug Use: Never Drug Type: Tobacco Use: Former Smoker Tobacco Type: Amount or Packs/day: How Many Years: Alcohol Use: No Frequency: Quant:
== END | disposition home or self-care (01) ==
LOC: PAIN 07:58
PROVIDERS: ATTEND Anesthesiology Pain Medicine
DX: M25.512 Pain in left shoulder (principal); M19.012 Primary osteoarthritis, left shoulder; M25.561 Pain in right knee; G89.29 Other chronic pain; Z96.651 Presence of right artificial knee joint; I10 Essential (primary) hypertension; F17.210 Nicotine dependence, cigarettes, uncomplicated; M19.90 Unspecified osteoarthritis, unspecified site; Z98.890 Other specified postprocedural states; Z79.899 Other long term (current) drug therapy; Z88.0 Allergy status to penicillin; Z88.2 Allergy status to sulfonamides

== ENCOUNTER → 2021-04-15 | Outpatient (CLI) | payer OTHER ==
[~2021-04-15] VITALS: Ht 152.4 cm; Wt 49.1 kg
[2021-04-15 09:27] VITALS: BP 117/53
--- NOTE | 2021-04-15 09:42 | NUR ---
Pain Clinic Assessment: 1. History of Osteoarthritis: NECK RIGHT KNEE LEFT SHOULDER History of Rheumatoid Arthritis: Not Applicable 2. Height: 5 ft. 0 in. 152.4 cm. Weight: 108.2 lb. oz. 49.079 kg. Patient's BMI: 21.1 3. Vital Signs: BP: 117/53 Pulse: 73 Resp: 14 Temp: 02 Sat: 98 ECG Mon: 4. Pain Intensity: 9 5. Fall Risk: Dizziness: N Needs help standing or walking: Y Fallen in the last 3 months: N Fall risk comments: 6. Patient on Blood Thinner: None 7. History of Hypertension: Y 8. Opioid Therapy greater than 6 weeks: Y Opiate Contract Signed: 9. Risk Assessment Tool Provided: LOW RISK 0 10. Functional Assessment Tool: 11. Recreational Drug Use: Never Drug Type: Tobacco Use: Former Smoker Tobacco Type: Amount or Packs/day: How Many Years: Alcohol Use: No Frequency: Quant:
--- NOTE | 2021-04-15 15:05 | HPC ---
[facility] [place] [address] PAIN MANAGEMENT CONSULTATION Name: PRISCA SOLIS Room #: REG [facility]..#: [id number] Admission: 04/15/21 Attend Phys: Orlando Crews DO Discharge: Date of : 43 Report #: [id number] THIS REPORT FOR: cc: Yakelin Valles MD,Yakelin Crews,Orlando Beauchamp DO ~ cc: Yakelin Valles MD DATE OF SERVICE: 04/15/2021 CHIEF COMPLAINT: Left shoulder pain. HISTORY OF PRESENT ILLNESS: As you know, the patient is a very pleasant 76-year-old female who returns today in followup visit to undergo left intraarticular shoulder injection under fluoroscopic guidance. She has just completed physical therapy for the day at the clinic next to our office and she has returned requesting an intra-articular shoulder injection. She states that the orthopedic surgeon is very pleased with response to her total knee arthroplasty and how she is improving. They are now considering looking towards a shoulder replacement surgery, but the patient is wishing to delay that process until which time she has healed better from her right knee. She returns requesting an intra-articular left shoulder injection to be provided today. She reports previous injection gave significant pain improvement. The patient reports symptom improvement of greater than 60%, lasting until just recently when she had to utilize her left upper extremity more frequently due to physical therapy requirements for right knee treatment. She returns today for the intraarticular shoulder injection and medication management. ALLERGIES: SULFA, ERYTHROMYCIN, PENICILLIN. CURRENT MEDICATIONS: See chart. SOCIAL HISTORY: The patient continues to smoke and has done so for years. Denies IV or illicit drug use. Denies any chronic alcohol use. She is unaccompanied at today's visit. IMAGING: No new imaging available. 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 No rheumatoid arthritis. Pain intensity today is rated all the way up to as high as 9/10. She is a fall risk, but has not had a fall in last 3 months. She is on hypertensive agents, but not on any blood thinners. She is on chronic opioids, has a low opioid addiction potential based on assessment tool, pain impact today , mild interference of daily activities secondary to pain. [address] [address] PAIN MANAGEMENT CONSULTATION Name: PRISCA SOLIS Room #: REG [facility]#: [id number] Admission: 04/15/21 Attend Phys: Orlando Cerws DO Discharge: Date of : 43 Report #: [id number] PHYSICAL EXAMINATION: VITAL SIGNS: Blood pressure 117/53, pulse 73, respiratory rate 14 and unlabored. The patient 98% on room air. Height 5 feet tall, weight 108 pounds, BMI calculated 21.1. GENERAL: Well-developed, well-nourished, well-hydrated, thin 76-year-old female appearing stated age, pain is rated today 9/10. HEENT: Normocephalic, atraumatic. Pupils are round and responsive. She is wearing a mask in compliance with hospital regulations regarding COVID-19. EXTREMITIES: Show no clubbing, no cyanosis. No appreciable edema. MUSCULOSKELETAL: Active and passive range of motion of the left shoulder is met with increasing pain. She is having difficulty with active motion due to pain generation with minimal movement. Pain is elicited with slight abduction of the shoulder, which has progressed from previous evaluation. Provocation testing is consistent with a rotator cuff injury and arthritic changes of the left shoulder greater than right. ASSESSMENT: 1. Chronic left shoulder pain. 2. Osteoarthritis of left shoulder. 3. Continued right knee pain status post total knee arthroplasty. PLAN: 1. The patient returns today in followup visit requesting an intra-articular shoulder injection under fluoroscopic guidance. The patient reports greater than 50-60% improvement in overall pain with these injections, they last for an extended period of time. She feels that the injections are much better way to deal with her left shoulder pain at this point than to look towards a total shoulder replacement, which will likely be necessary sooner than later. The patient wishes to delay that option as long as possible. She returns today to undergo left intraarticular shoulder injection under fluoroscopic guidance. The patient has been advised risks and benefits of intra-articular shoulder injections. These risks include but are not necessarily limited to bleeding, bruising, infection, worsening pain, no relief of pain, also risk of temporary or permanent muscle weakness, temporary or permanent nerve damage, possible joint destruction and . The patient states understood and wished to proceed. 2. The patient was provided refill prescription of [place] 5/325 one tab p.o. q. 12 hours p.r.n. for pain. Again, the patient #60 tablets with 1 refill, which is essentially 2 months worth of medication. We reviewed the patient's PDMP reports for both the [place] and [place] reviews. There are no concerning findings. We did review with the patient the opioid agreement that she has signed with us so that she understood the stipulations. 3. We will see the patient back in followup visit on an as needed basis for the next in the series of intra-articular shoulder injections. Otherwise, we will see her back in approximately 2 months for medication management. [facility] [address] [place] [address] PAIN MANAGEMENT CONSULTATION Name: PRISCA SOLIS Room #: REG [place] [facility]#: [id number] Admission: 04/15/21 Attend Phys: Orlando Crews DO Discharge: Date of : 43 Report #: [id number] PROCEDURE NOTE DESCRIPTION OF PROCEDURE: Left intra-articular shoulder injection under fluoroscopic guidance. After obtaining written consent, the patient was taken back to fluoroscopy suite, placed in a supine position. The image intensifier (C-arm) was then positioned over the patient's left shoulder and AP imaging was obtained. The area was marked and then sterilely prepped with chlorhexidine. A 27-gauge 1-1/4-inch needle was then used to anesthetize skin and subcutaneous tissue with 2 mL of 1% preservative-free lidocaine. A 25-gauge, 2-inch needle was then advanced under fluoroscopic guidance into the left shoulder joint. Needle was advanced until reaching the proximal head of the humerus. Needle was then retracted approximately 1 mm and aspiration noted to be negative for heme. After negative aspiration for heme, 0.3 mL of Omnipaque injected, demonstrating an excellent left shoulder arthrogram. After negative aspiration for heme, 3 mL of a solution containing 1 mL 40 mg per mL, 40 mg total triamcinolone along with 2 mL bupivacaine 0.5% was injected slowly. Needle retracted jail flushed with 1 mL of 1% lidocaine, then removed. Sterile bandage placed over injection site. No new motor deficits present in the left upper extremity following procedure. The patient tolerated the procedure well, carefully escorted to recovery room in stable condition. No apparent complications. After meeting discharge criteria, the patient discharged home. <ELECTRONICALLY SIGNED> By: Orlando Crews DO 04/15/21 1505 1141 1302 Orlando Crews DO /nt
== END | disposition home or self-care (01) ==
LOC: PAIN 07:19
PROVIDERS: ATTEND Anesthesiology Pain Medicine
DX: M25.512 Pain in left shoulder (principal); M19.012 Primary osteoarthritis, left shoulder; M25.561 Pain in right knee; G89.29 Other chronic pain; I10 Essential (primary) hypertension; M19.90 Unspecified osteoarthritis, unspecified site; Z98.890 Other specified postprocedural states; Z79.899 Other long term (current) drug therapy; Z96.651 Presence of right artificial knee joint; Z88.0 Allergy status to penicillin; Z88.2 Allergy status to sulfonamides; Z88.8 Allergy status to other drugs, medicaments and biological substances

== ENCOUNTER → 2021-06-25 | Outpatient (CLI) | payer OTHER ==
[~2021-06-25] VITALS: Ht 152.4 cm; Wt 52.1 kg
[2021-06-25 12:39] VITALS: BP 137/56
--- NOTE | 2021-06-25 12:46 | NUR ---
Pain Clinic Assessment: 1. History of Osteoarthritis: NECK RIGHT KNEE LEFT SHOULDER History of Rheumatoid Arthritis: Not Applicable 2. Height: 5 ft. 0 in. 152.4 cm. Weight: 114.8 lb. oz. 52.073 kg. Patient's BMI: 22.4 3. Vital Signs: BP: 137/56 Pulse: 79 Resp: 16 Temp: 02 Sat: 98 ECG Mon: 4. Pain Intensity: 8 5. Fall Risk: Dizziness: N Needs help standing or walking: N Fallen in the last 3 months: N Fall risk comments: 6. Patient on Blood Thinner: None 7. History of Hypertension: Y 8. Opioid Therapy greater than 6 weeks: Y Opiate Contract Signed: 9. Risk Assessment Tool Provided: LOW RISK 0 10. Functional Assessment Tool: 11. Recreational Drug Use: Never Drug Type: Tobacco Use: Former Smoker Tobacco Type: Amount or Packs/day: How Many Years: Alcohol Use: No Frequency: Quant:
== END ==
LOC: PAIN 08:37
PROVIDERS: ATTEND Clinical Nurse Specialist Adult Health
DX: G89.29 Other chronic pain (principal); M19.012 Primary osteoarthritis, left shoulder; Z96.651 Presence of right artificial knee joint; Z79.82 Long term (current) use of aspirin; Z88.8 Allergy status to other drugs, medicaments and biological substances; Z79.899 Other long term (current) drug therapy

== ENCOUNTER → 2021-08-20 | Outpatient (CLI) | payer OTHER ==
[~2021-08-20] VITALS: Ht 152.4 cm; Wt 54.0 kg
[~2021-08-20] MED LIST changes: +HYDROCODON-ACE1 EAC7 PO
--- NOTE | ~2021-08-20 | HPC ---
[facility] [place] [address] PAIN MANAGEMENT CONSULTATION Name: PRISCA SOLIS Room #: REG [facility]..#: [id number] Admission: 08/20/21 Attend Phys: Orlando Crews DO Discharge: Date of : 43 Report #: [id number] THIS REPORT FOR: cc: Yakelin Valles MD,Yakelin Crews,Orlando Beauchamp DO ~ cc: Yakelin Valles MD DATE OF SERVICE: 08/20/2021 REFERRING PHYSICIAN: Dr. Yakelin Valles. CHIEF COMPLAINT: Left shoulder pain. HISTORY OF PRESENT ILLNESS: As you know, the patient is a very pleasant 76-year-old female returning today in followup visit with recurrence of left shoulder pain. The patient states the previous shoulder injection provided in 04/2021 gave excellent benefit. She reports improvement in symptoms of greater than 50-60%, lasting for nearly 4 months. Unfortunately, her symptoms have begun to reoccur. There has been no inciting injury or trauma. She returns today requesting an intra-articular shoulder injection be performed today. She has also requested refill of hydrocodone. The most recent prescription she received was in April where she received 60 tablets. She has about 4 remaining, is requesting a refill on her medication. She is denying side effects with the medication including sleepiness, disorientation, confusion, mental slowing or constipation. ALLERGIES: SULFA, ERYTHROMYCIN, PENICILLIN. CURRENT MEDICATIONS: See chart. SOCIAL HISTORY: The patient continues to smoke, has done so for years. Denies IV or illicit drug use. Denies any chronic alcohol use. She is unaccompanied today. IMAGING: No new imaging available. PQRS: The patient has known arthritic changes of the cervical spine, bilateral shoulders, left greater than right, bilateral elbows, bilateral hands, bilateral knees and lumbar spine. No rheumatoid arthritis. She is placing pain intensity today at around 10/10. She is not a fall risk, has not had a fall in the last 3 months. She is not on blood thinners, but is treated for hypertension. She is on chronic opioids, has a low opiate addiction potential. Pain impact is 13/70, mild interference of daily activities secondary to pain. PHYSICAL EXAMINATION: VITAL SIGNS: Blood pressure 161/70, pulse 85, respiratory rate 16, unlabored. [address] [address] PAIN MANAGEMENT CONSULTATION Name: PRISCA SOLIS Room #: REG [facility]..#: [id number] Admission: 08/20/21 Attend Phys: Orlando Crews DO Discharge: Date of : 43 Report #: [id number] The patient is 96% on room air. Height 5 feet tall, weight 119 pounds, BMI calculated 23.2. GENERAL: Well-developed, well-nourished, well-hydrated 76-year-old female appearing stated age, pain is rated today 10/10. HEENT: Normocephalic, atraumatic. Pupils are round. She is wearing a mask in compliance with COVID-19 regulations. She is deemed an excellent historian. EXTREMITIES: Show no clubbing, no cyanosis. No appreciable edema. MUSCULOSKELETAL: The patient has pain with active and passive range of motion of left shoulder noted again today. There is some crepitus noted with movement. She has difficulty with abduction of the shoulder. Pressure over the anterior and posterior portions of the shoulder causes intensification of pain consistent with rotator cuff injury. ASSESSMENT: 1. Chronic left shoulder pain. 2. Rotator cuff injury of the left shoulder. 3. Osteoarthritis of the left shoulder. PLAN: 1. The patient returns today in followup visit indicating excellent benefit with the intra-articular shoulder injection provided in April. She reports greater than 50% improvement in overall pain lasting for nearly 4 months. She returns today in followup visit requesting the next in the series. She has denied injury or trauma that has led to recurrence of symptoms. She is not on any medications that would preclude the patient from undergoing the requested injection today. She has been advised risks and benefits of the procedure, states understood and wished to proceed. 2. We have provided the patient a refill of [place] 5/325 one tab every 8 hours p.r.n. for pain, given the patient #90 tablets. The prescriptions were sent via e-scribe to local pharmacy. She will take the medication as directed, not to take the medication prophylactically. She will watch for any side effects with its use. 3. See the patient back in followup visit on an as-needed basis for the next in series of left intra-articular shoulder injections. I am hopeful the patient will once again see good and prolonged benefit with the injection provided today. PROCEDURE NOTE DESCRIPTION OF PROCEDURE: Left intra-articular shoulder injection under fluoroscopic guidance. After obtaining written consent, the patient was taken back to fluoroscopy suite, placed in a supine position. The image intensifier (C-arm) was then brought into position over the patient's left shoulder and AP imaging was obtained. The area was marked and then sterilely prepped with chlorhexidine. A [address] [address] PAIN MANAGEMENT CONSULTATION Name: PRISCA SOLIS Room #: REG [facility]#: [id number] Admission: 08/20/21 Attend Phys: Orlando Crews DO Discharge: Date of : 43 Report #: [id number] 27-gauge 1-1/4-inch needle was then used to anesthetize skin and subcutaneous tissue with 2 mL of 1% preservative-free lidocaine. A 25-gauge 2-inch needle was then advanced under fluoroscopic guidance into the left shoulder joint. Needle was advanced until reaching the proximal head of the humerus. Needle was then retracted approximately 1 mm and aspiration noted to be negative for heme. After negative aspiration for heme, 0.2 mL of Omnipaque injected demonstrating an excellent left shoulder arthrogram. After negative aspiration for heme, 3 mL of a solution containing 1 mL 40 mg per mL, 40 mg total triamcinolone along with 2 mL of bupivacaine 0.5% was injected slowly. Needle retracted correction, flushed with 1 mL of 1% preservative-free lidocaine, then removed. Sterile bandage placed over injection site. No new motor deficits present in the upper extremity following procedure. The patient tolerated the procedure well, carefully escorted to the recovery room in stable condition. No apparent complications. After meeting discharge criteria, the patient discharged home. By: 0808 1 Orlando Crews DO /nt
[2021-08-20 08:10] VITALS: BP 161/70
--- NOTE | 2021-08-20 08:12 | NUR ---
Pain Clinic Assessment: 1. History of Osteoarthritis: NECK RIGHT KNEE LEFT SHOULDER History of Rheumatoid Arthritis: Not Applicable 2. Height: 5 ft. 0 in. 152.4 cm. Weight: 119.0 lb. oz. 53.978 kg. Patient's BMI: 23.2 3. Vital Signs: BP: 161/70 Pulse: 85 Resp: 16 Temp: 02 Sat: 96 ECG Mon: 4. Pain Intensity: 10 5. Fall Risk: Dizziness: N Needs help standing or walking: N Fallen in the last 3 months: N Fall risk comments: 6. Patient on Blood Thinner: None 7. History of Hypertension: Y 8. Opioid Therapy greater than 6 weeks: Y Opiate Contract Signed: 9. Risk Assessment Tool Provided: LOW RISK 0 10. Functional Assessment Tool: 11. Recreational Drug Use: Never Drug Type: Tobacco Use: Former Smoker Tobacco Type: Amount or Packs/day: How Many Years: Alcohol Use: No Frequency: Quant:
== END | disposition home or self-care (01) ==
LOC: PAIN 07-28 08:18
PROVIDERS: ATTEND Anesthesiology Pain Medicine
DX: M25.512 Pain in left shoulder (principal); M19.012 Primary osteoarthritis, left shoulder; G89.29 Other chronic pain; I10 Essential (primary) hypertension; M19.90 Unspecified osteoarthritis, unspecified site; Z98.890 Other specified postprocedural states; Z79.899 Other long term (current) drug therapy; Z88.0 Allergy status to penicillin; Z88.2 Allergy status to sulfonamides; Z87.891 Personal history of nicotine dependence